=== PATIENT | female | born 1990 | race Two or more races ===

== ENCOUNTER 2017-01-26 20:33 | Emergency (ER) | payer SELFPAY ==
[~2017-01-26] VITALS: Ht 152.4 cm; Wt 76.2 kg
[2017-01-26 20:52] VITALS: BP 132/85
[2017-01-26] MEDS ORDERED: CYCL10TA2 PO (20:56)
[2017-01-26] MEDS ORDERED: NAPR500T PO (20:56)
--- NOTE | 2017-01-26 20:57 | PHYS DOC ---
Adult General Chief Complaint Chief Complaint: LOWER BACK PAIN OR INJURY [facility] HPI Patient is a 26 year old female presents to the emergency department with complaints of mid back pain. She states 2 weeks ago she was carrying laundry when she slipped and bent her back. She describes hyperextension of back. She states she's had mild discomfort since that time and is here seeking evaluation. There is no radiation of pain, no loss of function. She has no loss of bowel or bladder control. No loss function lower extremity. Review of Systems Review of Systems Constitutional: Denies fever or chills [] Eyes: Denies change in visual acuity, redness, or eye pain [] HENT: Denies nasal congestion or sore throat [] Respiratory: Denies cough or shortness of breath [] Cardiovascular: No additional information not addressed in HPI [] GI: Denies abdominal pain, nausea, vomiting, bloody stools or diarrhea [] : Denies dysuria or hematuria [] Musculoskeletal: Back pain Integument: Denies rash or skin lesions [] Neurologic: Denies headache, focal weakness or sensory changes [] Endocrine: Denies polyuria or polydipsia [] Physical Exam Physical Exam Constitutional: Well developed, well nourished, no acute distress, non-toxic appearance. [] Neck: Normal range of motion, no tenderness, supple, no stridor. [] Abdomen: Bowel sounds normal, soft, no tenderness, no masses, no pulsatile masses. [] Back: Mild tenderness in the paraspinous muscles thorax 7 through 11 , without midline tenderness.. Extremities: No tenderness, no cyanosis, no clubbing, ROM intact, no edema, no saddle anesthesia. Muscle strength 5 over 5. [] Neurologic: Alert and oriented X 3, normal motor function, normal sensory function, no focal deficits noted. [] Psychologic: Affect normal, judgement normal, mood normal. [] EKG EKG [] Radiology/Procedures Radiology/Procedures [] Course & Med Decision Making Course & Med Decision Making Pertinent Labs and Imaging studies reviewed. (See chart for details) [] Dragon Disclaimer Dragon Disclaimer This electronic medical record was generated, in whole or in part, using a voice recognition dictation system. Departure Departure Impression: Primary Impression: Thoracic myofascial strain Disposition: 01 HOME, SELF-CARE Condition: STABLE Patient Instructions: Thoracic Strain Scripts Naproxen (NAPROSYN) 500 Mg Tablet 500 MG PO BID, #20 TAB Prov: SHARRI ELIZABETH APRN 01/26/17 Cyclobenzaprine Hcl (CYCLOBENZAPRINE HCL) 10 Mg Tablet 10 MG PO TID, #30 TAB Prov: SHARRI ELIZABETH APRN 01/26/17 Problem Qualifiers Primary Impression: Thoracic myofascial strain Encounter type: initial encounter Qualified Codes: S29.019A - Strain of muscle and tendon of unspecified wall of thorax, initial encounter SHARRI ELIZABETH APRN Jan 26, 2017 20:57
== END 2017-01-26 21:10 | disposition home or self-care (01) ==
LOC: ER 20:33
DX: S29.012A Strain of muscle and tendon of back wall of thorax, initial encounter (principal); W01.0XXA Fall on same level from slipping, tripping and stumbling without subsequent striking against object, initial encounter; Y93.89 Activity, other specified; Y99.8 Other external cause status; Y92.89 Other specified places as the place of occurrence of the external cause
CPT/HCPCS: 99283

== ENCOUNTER 2017-02-04 17:33 | Emergency (ER) | payer SELFPAY ==
[~2017-02-04] VITALS: Ht 152.4 cm; Wt 76.2 kg
[~2017-02-04 17:33] MED LIST: CYCL10TA2 PO; NAPR500T PO
[2017-02-04 19:03] LABS: BASO % 0 % (0-3); EOS % 2 % (0-3); HEMATOCRIT 39.5 % (36.0-47.0); LYMPH # 1.8 x10^3/uL (1.0-4.8); LYMPH % 24 % (24-48); MEAN CORPUSCULAR HEMOGLOBIN 27 pg (25-35); MEAN CORPUSCULAR HGB CONC 33 g/dL (31-37); MEAN CORPUSCULAR VOLUME 81 fL (79-100); MONO % 10 % (0-9); NEUT % 64 % (31-73); PLATELET COUNT 183 x10^3/uL (140-400); RED BLOOD COUNT 4.88 x10^6/uL (3.50-5.40); RED CELL DISTRIBUTION WIDTH 13.3 % (11.5-14.5); WHITE BLOOD COUNT 7.6 x10^3/uL (4.0-11.0)
[2017-02-04 19:11] LABS: BILIRUBIN,URINE NEGATIVE (NEG); GLUCOSE,URINE NEGATIVE (NEG); NITRITE,URINE NEGATIVE (NEG); PROTEIN,URINE NEGATIVE (NEG-TRACE); UROBILINOGEN,URINE 0.2 mg/dL (0.2 mg/dL)
[2017-02-04 19:16] LABS: BARBITURATES NEG (NEG); BENZODIAZEPINES NEG (NEG); CANNABINOIDS NEG (NEG); COCAINE NEG (NEG); METHADONE NEG (NEG); OPIATES NEG (NEG); PHENCYCLIDINE NEG (NEG)
[2017-02-04 19:18] LABS: PROTHROMBIN TIME PATIENT 12.7 SEC (11.7-14.0)
[2017-02-04 19:30] LABS: CALCIUM 8.8 mg/dL (8.5-10.1); CREATININE 0.7 mg/dL (0.6-1.0)
[2017-02-04 19:35] LABS: MAGNESIUM 2.1 mg/dL (1.8-2.4)
[2017-02-04 19:36] LABS: BACTERIA,URINE MANY /HPF (0-FEW); RBC,URINE OCC /HPF (0-2)
[2017-02-04 19:37] LABS: SQUAMOUS EPITHELIAL CELL,UR MOD /LPF
[2017-02-04 19:44] LABS: CREATINE KINASE 58 U/L (26-192)
[2017-02-04 20:01] LABS: CKMB MASS < 0.5 ng/mL (0.0-3.6)
[2017-02-04 20:08] VITALS: BP 109/74
--- NOTE | 2017-02-04 20:37 | PHYS DOC ---
Past Medical History Past Medical History: Anxiety, Depression, Other Additional Past Medical Histor: RA Past Surgical History: Tubal ligation Alcohol Use: None Drug Use: None Adult General Chief Complaint Chief Complaint: OTHER COMPLAINTS HPI HPI Patient is a 26 year old female with history of anxiety and depression who presents today complaining of chest pain mid substernal and non radiating, palpitations and tachycardia for 1-1/2 weeks. Patient states she was diagnosed with hyperthyroidism on Tuesday which the PCP attributed as the cause of her tachycardia and palpitations. She states her PCP started her on medication for hyperthyroidism on Tuesday. She states she has continued to have palpitations. Patient denies any chest pain right now. Review of Systems Review of Systems Constitutional: Denies fever or chills [] Eyes: Denies change in visual acuity, redness, or eye pain [] HENT: Denies nasal congestion or sore throat [] Respiratory: Denies cough or shortness of breath [] Cardiovascular: Palpitations, tachycardia, chest pain. GI: Denies abdominal pain, nausea, vomiting, bloody stools or diarrhea [] : Denies dysuria or hematuria [] Musculoskeletal: Denies back pain or joint pain [] Integument: Denies rash or skin lesions [] Neurologic: Denies headache, focal weakness or sensory changes [] Endocrine: Denies polyuria or polydipsia [] Allergies Allergies Allergies Coded Allergies Type Severity Reaction Last Updated Verified tramadol Allergy Intermediate 01/26/17 Yes Physical Exam Physical Exam Constitutional: Well developed, well nourished, no acute distress, non-toxic appearance. [] HENT: Normocephalic, atraumatic, bilateral external ears normal, oropharynx moist, no oral exudates, nose normal. [] Eyes: PERRLA, EOMI, conjunctiva normal, no discharge. [] Neck: Normal range of motion, no tenderness, supple, no stridor. [] Cardiovascular:Heart rate regular rhythm, no murmur [] Lungs & Thorax: Bilateral breath sounds clear to auscultation [] Abdomen: Bowel sounds normal, soft, no tenderness, no masses, no pulsatile masses. [] Skin: Warm, dry, no erythema, no rash. [] Back: No tenderness, no CVA tenderness. [] Extremities: No tenderness, no cyanosis, no clubbing, ROM intact, no edema. [] Neurologic: Alert and oriented X 3, normal motor function, normal sensory function, no focal deficits noted. [] Psychologic: Affect normal, judgement normal, mood normal. [] Current Patient Data Vital Signs Vital Signs Date Time Temp Pulse Resp B/P (MAP) Pulse Ox O2 Delivery O2 Flow Rate FiO2 02/04/17 20:08 102 22 109/74 (86) 98 Room Air 02/04/17 18:00 98.7 98.7 Lab Values Laboratory Tests Test 02/04/17 18:30 02/04/17 18:50 White Blood Count 7.6 x10^3/uL (4.0-11.0) Red Blood Count 4.88 x10^6/uL (3.50-5.40) Hemoglobin 13.0 g/dL (12.0-15.5) Hematocrit 39.5 % (36.0-47.0) Mean Corpuscular Volume 81 fL (79-100) Mean Corpuscular Hemoglobin 27 pg (25-35) Mean Corpuscular Hemoglobin Concent 33 g/dL (31-37) Red Cell Distribution Width 13.3 % (11.5-14.5) Platelet Count 183 x10^3/uL (140-400) Neutrophils (%) (Auto) 64 % (31-73) Lymphocytes (%) (Auto) 24 % (24-48) Monocytes (%) (Auto) 10 % (0-9) H Eosinophils (%) (Auto) 2 % (0-3) Basophils (%) (Auto) 0 % (0-3) Neutrophils # (Auto) 4.9 x10^3uL (1.8-7.7) Lymphocytes # (Auto) 1.8 x10^3/uL (1.0-4.8) Monocytes # (Auto) 0.7 x10^3/uL (0.0-1.1) Eosinophils # (Auto) 0.2 x10^3/uL (0.0-0.7) Basophils # (Auto) 0.0 x10^3/uL (0.0-0.2) Prothrombin Time 12.7 SEC (11.7-14.0) Prothrombin Time INR 1.0 (0.8-1.1) PTT 26 SEC (24-38) D-Dimer (Zunilda) 0.31 ug/mlFEU (0.00-0.50) Sodium Level 143 mmol/L (136-145) Potassium Level 4.0 mmol/L (3.5-5.1) Chloride Level 106 mmol/L (98-107) Carbon Dioxide Level 31 mmol/L (21-32) Anion Gap 6 (6-14) Blood Urea Nitrogen 16 mg/dL (7-20) Creatinine 0.7 mg/dL (0.6-1.0) Estimated GFR (Cockcroft-Gault) 102.0 Glucose Level 86 mg/dL (70-99) Calcium Level 8.8 mg/dL (8.5-10.1) Magnesium Level 2.1 mg/dL (1.8-2.4) Creatine Kinase 58 U/L (26-192) Creatine Kinase MB (Mass) < 0.5 ng/mL (0.0-3.6) Creatine Kinase MB Relative Index 0.9 % (0-4) Troponin I Quantitative < 0.017 ng/mL (0.000-0.055) QV-Ihy-F-Type Natriuretic Peptide 15 pg/mL (0-124) Thyroid Stimulating Hormone (TSH) < 0.007 uIU/mL (0.358-3.74) L Urine Collection Type Unknown Urine Color Yellow Urine Clarity Clear Urine pH 6.0 Urine Specific [place] 1.020 Urine Protein Negative mg/dL (NEG-TRACE) Urine Glucose (UA) Negative mg/dL (NEG) Urine Ketones (Stick) Negative mg/dL (NEG) Urine Blood Negative (NEG) Urine Nitrite Negative (NEG) Urine Bilirubin Negative (NEG) Urine Urobilinogen Dipstick 0.2 mg/dL (0.2 mg/dL) Urine Leukocyte Esterase Negative (NEG) Urine RBC Occ /HPF (0-2) Urine WBC 1-4 /HPF (0-4) Urine Squamous Epithelial Cells Mod /LPF Urine Bacteria Many /HPF (0-FEW) Urine Mucus Mod /LPF Urine Opiates Screen Neg (NEG) Urine Methadone Screen Neg (NEG) Urine Barbiturates Neg (NEG) Urine Phencyclidine Screen Neg (NEG) Urine Amphetamine/Methamphetamine Neg (NEG) Urine Benzodiazepines Screen Neg (NEG) Urine Cocaine Screen Neg (NEG) Urine Cannabinoids Screen Neg (NEG) Urine Ethyl Alcohol Neg (NEG) Laboratory Tests 02/04/17 18:30 Laboratory Tests 02/04/17 18:30 EKG EKG []19:06 EKG interpreted by Sinus tachycardia, normal axis, QRS interval 82, heart rate 106, no STEMI. Radiology/Procedures Radiology/Procedures [] Course & Med Decision Making Course & Med Decision Making Pertinent Labs and Imaging studies reviewed. (See chart for details) This is a 26-year-old female patient with a new diagnosis of hyperthyroidism on Tuesday this week and was started on medication. She presents today complaining of tachycardia, palpitations and chest pain that have been going on intermittently for 1-1/2 weeks. She has no chest pain in the Ed. 19:06 EKG interpreted by Sinus tachycardia, normal axis, QRS interval 82, heart rate 106, no STEMI. CBC is BMP troponin CK-MB and normal. Urine with no infection. Heart rate was 113 on arrival to the ED, it came down to 102. Blood pressure 124 /65, O2 sats 100% on room air, temperature 98.7, respiration 20 room air. Patient is in no distress. TSH 0.007. Patient states it was 0.009 on Tuesday. This is a well-known condition to patient's PCP and she was started on medication. This appears to be the source of her tachycardia and palpitations. I recommended she continues following up with the PCP. I did provide patient a dining room host/hostess for follow-up as well. Dragon Disclaimer Dragon Disclaimer This electronic medical record was generated, in whole or in part, using a voice recognition dictation system. Departure Departure Impression: Primary Impression: Palpitations Additional Impressions: Tachycardia Hyperthyroidism Disposition: HOME, SELF-CARE Condition: STABLE Referrals: SIS DRUMMOND (PCP) Follow-up with your doctor on Tuesday FABBY PATHAK MD follow up next week Patient Instructions: Palpitations, [id number] Additional Instructions: You were seen for palpitations, chest pain, and tachycardia from low levels of thyroid. Please continue taking your thyroid medicines. Follow-up with the doctor on Tuesday. Follow-up with the dining room host/hostess provided on Tuesday. Come back to the ED if symptoms worsen. Problem Qualifiers UYEN PICKARD APRN Feb 04, 2017 20:37
--- NOTE | 2017-02-05 07:34 | EKG ---
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
== END 2017-02-04 20:43 | disposition home or self-care (01) ==
LOC: ER 17:33
DX: R00.2 Palpitations (principal); R00.0 Tachycardia, unspecified; E05.90 Thyrotoxicosis, unspecified without thyrotoxic crisis or storm; R07.2 Precordial pain; F41.9 Anxiety disorder, unspecified; F32.9 Major depressive disorder, single episode, unspecified; M06.9 Rheumatoid arthritis, unspecified; Z88.5 Allergy status to narcotic agent; Z98.51 Tubal ligation status
CPT/HCPCS: 36415; 80048; 80305; 80320; 81001; 81025; 82550; 82553; 83735; 83880; 84443; 84484; 85027; 85379; 85610; 85730; 93005; G0481; 99285-25

== ENCOUNTER 2017-04-12 15:39 | Emergency (ER) | payer SELFPAY ==
[~2017-04-12] VITALS: Ht 152.4 cm; Wt 76.2 kg
[2017-04-12 16:29] LABS: BILIRUBIN,URINE NEGATIVE (NEG); GLUCOSE,URINE NEGATIVE (NEG); NITRITE,URINE NEGATIVE (NEG); PROTEIN,URINE 30 mg/dL (NEG-TRACE); UROBILINOGEN,URINE 0.2 mg/dL (0.2 mg/dL)
[2017-04-12 16:42] LABS: BASO % 0 % (0-3); EOS % 1 % (0-3); HEMATOCRIT 41.4 % (36.0-47.0); HEMOGLOBIN 13.8 g/dL (12.0-15.5); LYMPH # 1.9 x10^3/uL (1.0-4.8); LYMPH % 19 % (24-48); MEAN CORPUSCULAR HEMOGLOBIN 26 pg (25-35); MEAN CORPUSCULAR HGB CONC 33 g/dL (31-37); MEAN CORPUSCULAR VOLUME 79 fL (79-100); MONO % 5 % (0-9); NEUT % 74 % (31-73); PLATELET COUNT 177 x10^3/uL (140-400); RED BLOOD COUNT 5.23 x10^6/uL (3.50-5.40); RED CELL DISTRIBUTION WIDTH 13.2 % (11.5-14.5); WHITE BLOOD COUNT 9.5 x10^3/uL (4.0-11.0)
[2017-04-12 16:46] LABS: BACTERIA,URINE MOD /HPF (0-FEW); RBC,URINE TNTC /HPF (0-2); SQUAMOUS EPITHELIAL CELL,UR MOD /LPF
--- NOTE | 2017-04-12 16:53 | ED.ADGEN ---
Past Medical History Past Medical History: Anxiety, Depression, Hyperthyroid, Other Additional Past Medical Histor: RA, PTSD Past Surgical History: Tubal ligation Alcohol Use: None Drug Use: None Adult General Chief Complaint Chief Complaint: DIZZY/LIGHT HEADED HPI HPI Patient is a 27 year old woman, with history of hyperthyroidism, for which she takes methimazole, migraine headaches, asthma, PTSD, and fibromyalgia, status post tubal ligation, who presents to the emergency department with a complaint of feeling lightheaded, dizzy, and generally unwell the past several days. No syncope or true presyncope, no chest pain, no breathing difficulties. She states she has had sick contacts among her daughter, with a mild cough, patient states she has "some cough sometimes", but it is nonproductive, denies any fevers, any chills, difficulty breathing, any focal weakness, numbness or tingling, any migraine type symptoms, any vision changes. She states that she has been feeling lightheaded, generally unwell for the past 3 days, states she feels as though "my feet are tight", and they hurt sometimes she walks on them, denies any pain or swelling in other locations, any rashes, any recent travel or surgery. Patient states she's been experiencing urinary frequency especially at nighttime, states that she is currently on her menses and states that initially there were more intermittent, but had become "regular bleeding" today. Denies any discharge or drainage from the vagina, any concerns for STI exposures. No vertiginous symptoms. Review of Systems Review of Systems Constitutional: Denies fever or chills. []Generalized malaise. Lightheaded nebs , feeling of presyncope without syncope. Eyes: Denies change in visual acuity. [] HENT: Denies nasal congestion or sore throat. [] Respiratory: Denies cough or shortness of breath. [] Cardiovascular: Denies chest pain or edema. [] GI: Denies abdominal pain, nausea, vomiting, bloody stools or diarrhea. [] : Denies dysuria. [] Musculoskeletal: Denies back pain or joint pain. [] Integument: Denies rash. [] Neurologic: Denies headache, focal weakness or sensory changes. [] Endocrine: Denies polyuria or polydipsia. [] Lymphatic: Denies swollen glands. [] Psychiatric: Denies depression or anxiety. [] Current Medications Current Medications Current Medications Medications (Trade) Dose Ordered Sig/Dulce Start Time Stop Time Status Last Admin Dose Admin Cephalexin HCl (Keflex) 500 mg 1X ONCE 04/12/17 17:30 04/12/17 17:31 DC Potassium Chloride (KCl Oral Soln) 40 meq 1X ONCE 04/12/17 17:30 04/12/17 17:31 DC Allergies Allergies Allergies Coded Allergies Type Severity Reaction Last Updated Verified tramadol Allergy Intermediate 01/26/17 Yes Physical Exam Physical Exam Constitutional: Well developed, well nourished, no acute distress, non-toxic appearance. [] HENT: Normocephalic, atraumatic, bilateral external ears normal, oropharynx moist, no oral exudates, nose normal. [] Eyes: PERRLA, EOMI, conjunctiva normal, no discharge. [] Neck: Normal range of motion, no tenderness, supple, no stridor. [] Cardiovascular:Heart rate regular rhythm, no murmur, S1, S2, rubs or gallops. [] Lungs & Thorax: Bilateral breath sounds clear to auscultation, no wheezing, rhonchi, rales. No chest or crepitus or tenderness. [] Abdomen: Bowel sounds normal, soft, no tenderness, no rebound, rigidity, no guarding, no masses, no pulsatile masses. [] Skin: Warm, dry, no erythema, no rash. [] Back: No tenderness, no CVA tenderness. [] Extremities: No tenderness, no cyanosis, no clubbing, ROM intact, no edema. Negative Homans sign. [] Neurologic: Alert and oriented X 3, normal motor function, normal sensory function, no focal deficits noted. [] Psychologic: Affect normal, judgement normal, mood normal. [] Current Patient Data Vital Signs Vital Signs Date Time Temp Pulse Resp B/P (MAP) Pulse Ox O2 Delivery O2 Flow Rate FiO2 04/12/17 15:53 97.7 73 18 113/67 (82) 98 Room Air 97.7 Lab Values Laboratory Tests Test 04/12/17 16:00 04/12/17 16:03 04/12/17 16:25 Urine Collection Type Unknown Urine Color Red Urine Clarity Cloudy Urine pH 6.0 Urine Specific [place] 1.020 Urine Protein 30 mg/dL (NEG-TRACE) Urine Glucose (UA) Negative mg/dL (NEG) Urine Ketones (Stick) Negative mg/dL (NEG) Urine Blood Large (NEG) Urine Nitrite Negative (NEG) Urine Bilirubin Negative (NEG) Urine Urobilinogen Dipstick 0.2 mg/dL (0.2 mg/dL) Urine Leukocyte Esterase Moderate (NEG) Urine RBC Tntc /HPF (0-2) Urine WBC 11-20 /HPF (0-4) Urine Squamous Epithelial Cells Mod /LPF Urine Bacteria Mod /HPF (0-FEW) Urine Mucus Mod /LPF POC Urine HCG, Qualitative Hcg negative (Negative) White Blood Count 9.5 x10^3/uL (4.0-11.0) Red Blood Count 5.23 x10^6/uL (3.50-5.40) Hemoglobin 13.8 g/dL (12.0-15.5) Hematocrit 41.4 % (36.0-47.0) Mean Corpuscular Volume 79 fL (79-100) Mean Corpuscular Hemoglobin 26 pg (25-35) Mean Corpuscular Hemoglobin Concent 33 g/dL (31-37) Red Cell Distribution Width 13.2 % (11.5-14.5) Platelet Count 177 x10^3/uL (140-400) Neutrophils (%) (Auto) 74 % (31-73) H Lymphocytes (%) (Auto) 19 % (24-48) L Monocytes (%) (Auto) 5 % (0-9) Eosinophils (%) (Auto) 1 % (0-3) Basophils (%) (Auto) 0 % (0-3) Neutrophils # (Auto) 7.0 x10^3uL (1.8-7.7) Lymphocytes # (Auto) 1.9 x10^3/uL (1.0-4.8) Monocytes # (Auto) 0.5 x10^3/uL (0.0-1.1) Eosinophils # (Auto) 0.1 x10^3/uL (0.0-0.7) Basophils # (Auto) 0.0 x10^3/uL (0.0-0.2) Sodium Level 140 mmol/L (136-145) Potassium Level 3.4 mmol/L (3.5-5.1) L Chloride Level 104 mmol/L (98-107) Carbon Dioxide Level 26 mmol/L (21-32) Anion Gap 10 (6-14) Blood Urea Nitrogen 17 mg/dL (7-20) Creatinine 0.7 mg/dL (0.6-1.0) Estimated GFR (Cockcroft-Gault) 101.1 Glucose Level 92 mg/dL (70-99) Calcium Level 9.0 mg/dL (8.5-10.1) Thyroid Stimulating Hormone (TSH) < 0.007 uIU/mL (0.358-3.74) L Laboratory Tests 04/12/17 16:25 Laboratory Tests 04/12/17 16:25 EKG EKG EC: Sinus rhythm, heart rate 57 bpm, upright axis, QTC of 390, [place] 1:30, QRS of 80, no ST elevations or depressions, no evidence of acute ST abnormalities. As interpreted by me.[] Radiology/Procedures Radiology/Procedures Not indicated.[] Course & Med Decision Making Course & Med Decision Making Pertinent Labs and Imaging studies reviewed. (See chart for details) Patient well-appearing, vital signs within normal limits. Discussion at bedside will obtain laboratory studies including urinalysis as patient is complaining of increased urinary frequency and urgency over the past several days along with feeling generally run down. She is not exhibiting any vertiginous symptoms , and is a normal neurologic examination. No indication for advanced imaging. ECG was unremarkable, heart rate in the 50s and 60s, sinus rhythm, as stated all vital signs within normal limits, no evidence of orthostasis on examination. Patient's laboratory studies revealed a slight hypokalemia with a K of 3.4, otherwise unremarkable, patient was noted to have 20 WBCs, and bacteria in the urine, conjunction with her symptoms, will treat for UTI. I did discuss this with patient, patient was offered potassiums limitation in the ED, discussed increasing dietary intake of potassium, also discussed the importance of following up with her endocrinology appointment on Tuesday for additional evaluation and recommendations. Patient voiced understanding and agreement. Received first dose of Keflex in the ED, KCl in the ED, she tolerated both without issue. We discussed concerning symptoms that would prompt return to the emergency department. Patient voiced understanding and agreement, states that she is feeling better at this time, is rated go home. 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 Patient discharged home in stable condition with prescription for Keflex, precautions, and plan as above. Dragon Disclaimer Dragon Disclaimer This electronic medical record was generated, in whole or in part, using a voice recognition dictation system. Departure Impression: Primary Impression: Urinary tract infection Additional Impression: Hypokalemia Disposition: HOME, SELF-CARE Condition: IMPROVED Scripts Cephalexin (KEFLEX) 500 Mg Capsule 1 CAP PO BID, #6 CAP Prov: DEQUAN HARRIS DO 04/12/17 Problem Qualifiers DEQUAN HARRIS DO Apr 12, 2017 16:53
[2017-04-12 17:04] LABS: CREATININE 0.7 mg/dL (0.6-1.0); GFR 101.1; POTASSIUM 3.4 mmol/L (3.5-5.1)
[2017-04-12] MEDS ORDERED: CEPHALEXIN 250 MG CAPSULE. PO ONE (17:30)
[2017-04-12] MEDS ORDERED: POTASSIUM CHLORIDE 20 MEQ/15 ML ORAL LIQUID. PO ONE (17:30)
[2017-04-12] MEDS ORDERED: CEPH-264 PO (17:43)
[2017-04-12 18:10] VITALS: BP 109/61
--- NOTE | 2017-04-13 06:34 | EKG ---
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
== END 2017-04-12 18:20 | disposition home or self-care (01) ==
LOC: ER 15:39
DX: N39.0 Urinary tract infection, site not specified (principal); M06.9 Rheumatoid arthritis, unspecified; E05.90 Thyrotoxicosis, unspecified without thyrotoxic crisis or storm; F43.10 Post-traumatic stress disorder, unspecified; G43.909 Migraine, unspecified, not intractable, without status migrainosus; J45.909 Unspecified asthma, uncomplicated; M79.7 Fibromyalgia; Z88.8 Allergy status to other drugs, medicaments and biological substances
CPT/HCPCS: 36415; 80048; 81001; 81025; 84443; 85025; 93005; 99285-25

== ENCOUNTER 2017-09-18 17:08 | Emergency (ER) | payer BC | END 2017-09-18 19:02 | disposition home or self-care (01) | LOC: ER 17:08 | DX: S62.657A Nondisplaced fracture of middle phalanx of left little finger, initial encounter for closed fracture (principal); S60.042A Contusion of left ring finger without damage to nail, initial encounter; F41.9 Anxiety disorder, unspecified; F32.9 Major depressive disorder, single episode, unspecified; E05.90 Thyrotoxicosis, unspecified without thyrotoxic crisis or storm; F43.10 Post-traumatic stress disorder, unspecified; M06.9 Rheumatoid arthritis, unspecified; I10 Essential (primary) hypertension; Z98.51 Tubal ligation status; Z88.5 Allergy status to narcotic agent; W23.0XXA Caught, crushed, jammed, or pinched between moving objects, initial encounter; Y93.89 Activity, other specified; Y92.89 Other specified places as the place of occurrence of the external cause; Y99.8 Other external cause status | CPT/HCPCS: 29130; 73130; 99284 ==

== ENCOUNTER 2018-04-25 12:40 | Emergency (ER) | payer BC ==
[~2018-04-25] VITALS: Ht 165.1 cm; Wt 81.6 kg
[~2018-04-25 12:40] MED LIST changes: +ACET-704 PO; +CEPH-264 PO; +NAPR-683 PO; -NAPR500T PO
[2018-04-25 13:10] VITALS: BP 112/74
--- NOTE | 2018-04-25 13:32 | PHYS DOC ---
Past Medical History Past Medical History: Anxiety, Depression, Hyperthyroid, Other Additional Past Medical Histor: RA, PTSD Past Surgical History: Tubal ligation Alcohol Use: Occasionally Drug Use: None Adult General Chief Complaint Chief Complaint: SORE THROAT HPI HPI Patient is a 28 year old complains of sore throat x 3 days. Describes the pain as sharp. Rates the pain as 6/10. Associated symptoms include rhinorrhea, subjective fever and ear pain. Denies chest pain, cough, shortness of breath, headache, abdominal pain, rash or nausea/vomiting. Review of Systems Review of Systems Constitutional: Complains of subjective fever, Denies chills [] Eyes: Denies change in visual acuity, redness, or eye pain [] HENT: Complains of rhinorrhea, ear pain, and sore throat. Respiratory: Denies cough or shortness of breath [] Cardiovascular: No additional information not addressed in HPI [] GI: Denies abdominal pain, nausea, vomiting, bloody stools or diarrhea [] : Denies dysuria or hematuria [] Musculoskeletal: Denies back pain or joint pain [] Integument: Denies rash or skin lesions [] Neurologic: Denies headache, focal weakness or sensory changes [] All other systems were reviewed and found to be within normal limits, except as documented in this note. Allergies Allergies Allergies Coded Allergies Type Severity Reaction Last Updated Verified tramadol Allergy Intermediate 01/26/17 Yes Physical Exam Physical Exam Constitutional: Well developed, well nourished, no acute distress, non-toxic appearance. [] HENT: Normocephalic, atraumatic, bilateral external ears normal, oropharynx moist, no oral exudates, nose normal. Mild pharyngeal erythema. No exudate. Uvula midline. Eyes: PERRLA, EOMI, conjunctiva normal, no discharge. [] Neck: Normal range of motion, no tenderness, supple, no stridor. [] Cardiovascular:Heart rate regular rhythm, no murmur [] Lungs & Thorax: Bilateral breath sounds clear to auscultation [] Abdomen: Bowel sounds normal, soft, no tenderness, no masses, no pulsatile masses. [] Skin: Warm, dry, no erythema, no rash. [] Back: No tenderness, no CVA tenderness. [] Extremities: No tenderness, no cyanosis, no clubbing, ROM intact, no edema. [] Neurologic: Alert and oriented X 3, normal motor function, normal sensory function, no focal deficits noted. [] Psychologic: Affect normal, judgement normal, mood normal. [] Current Patient Data Vital Signs Vital Signs Date Time Temp Pulse Resp B/P (MAP) Pulse Ox O2 Delivery O2 Flow Rate FiO2 04/25/18 13:10 98.3 88 16 112/74 (87) 99 Room Air 98.3 Lab Values Laboratory Tests Test 04/25/18 13:17 Group A Streptococcus Rapid Negative (NEGATIVE) EKG EKG [] Radiology/Procedures Radiology/Procedures [] Course & Med Decision Making Course & Med Decision Making Pertinent Labs and Imaging studies reviewed. (See chart for details) []Strep test negative. We'll treat with short course of prednisone outpatient. Discussed symptomatic treatment and [id number] medications. Discussed follow-up and reasons to return to the ED. Patient understands and agrees with plan. Dragon Disclaimer Dragon Disclaimer This electronic medical record was generated, in whole or in part, using a voice recognition dictation system. Departure Departure Impression: Primary Impression: Pharyngitis Disposition: 01 HOME, SELF-CARE Condition: IMPROVED Referrals: SIS DRUMMOND MD (PCP) Patient Instructions: Viral and Bacterial Pharyngitis Scripts Prednisone (PREDNISONE) 20 Mg Tablet 2 TAB PO DAILY for 5 Days, #10 TAB Prov: CONNIE LOERA 04/25/18 CONNIE LOERA Apr 25, 2018 13:32
[2018-04-25] MEDS ORDERED: PRED20TA PO (13:51)
== END 2018-04-25 14:17 | disposition home or self-care (01) ==
LOC: ER 12:40
DX: J02.9 Acute pharyngitis, unspecified (principal); H92.09 Otalgia, unspecified ear; F41.9 Anxiety disorder, unspecified; F32.9 Major depressive disorder, single episode, unspecified; E03.9 Hypothyroidism, unspecified; Z98.51 Tubal ligation status; Z88.5 Allergy status to narcotic agent
CPT/HCPCS: 87070; 87880; 99283

== ENCOUNTER 2018-05-16 17:09 | Emergency (ER) | payer BC ==
[~2018-05-16] VITALS: Ht 152.4 cm; Wt 86.2 kg
[~2018-05-16 17:09] MED LIST changes: +PRED20TA PO
[2018-05-16] MEDS ORDERED: CYCL5TAB PO (20:07)
[2018-05-16] MEDS ORDERED: CYCLOBENZAPRINE 10 MG TABLET. PO ONE (20:15)
[2018-05-16 20:32] LABS: CREATININE ISTAT 1.3 mg/dL (0.5-1.4); HEMOGLOBIN ISTAT 13.9 g/dL (12-15); ION CA ISTAT 1.14 mmol/L (1.13-1.32); POTASSIUM ISTAT 3.3 mmol/L (3.5-5.0)
[2018-05-16 20:33] LABS: BILIRUBIN,URINE NEGATIVE (NEG); CLARITY,URINE CLEAR; COLOR,URINE YELLOW; NITRITE,URINE NEGATIVE (NEG); PH,URINE 6.5; PROTEIN,URINE 30 mg/dL (NEG-TRACE)
[2018-05-16 20:59] LABS: BACTERIA,URINE FEW /HPF (0-FEW); SQUAMOUS EPITHELIAL CELL,UR MANY /LPF
[2018-05-16 21:13] VITALS: BP 102/77
--- NOTE | 2018-05-16 21:33 | PHYS DOC ---
Past Medical History Past Medical History: Anxiety, Depression, Hypothyroid, Migraines, Other Additional Past Medical Histor: RA, PTSD, GRAVES Past Surgical History: Tubal ligation, Other Additional Past Surgical Histo: THYROID Alcohol Use: Occasionally Drug Use: None Adult General Chief Complaint Chief Complaint: FLANK PAIN HPI HPI Patient is a 28 year old female presenting with back pain. She has a history of chronic back pain has been worse in the left side for the last 3 days in the left paraspinous area no dysuria she does have intermittent foot and arm swelling she was told she had mild renal insufficiency and she was told to watch for that so she has not been taking any Motrin. It's worse with position and movement. No bowel or bladder incontinence no leg pain or numbness. Review of Systems Review of Systems Constitutional: Denies fever or chills [] Eyes: Denies change in visual acuity, redness, or eye pain [] HENT: Denies nasal congestion or sore throat [] Respiratory: Denies cough or shortness of breath [] Neurologic: Denies headache, focal weakness or sensory changes [] All other systems were reviewed and found to be within normal limits, except as documented in this note. Current Medications Current Medications Current Medications Medications (Trade) Dose Ordered Sig/Dulce Start Time Stop Time Status Last Admin Dose Admin Cyclobenzaprine HCl (Flexeril) 10 mg 1X ONCE 05/16/18 20:15 05/16/18 20:16 DC 05/16/18 20:15 10 MG Allergies Allergies Allergies Coded Allergies Type Severity Reaction Last Updated Verified tramadol Allergy Intermediate 01/26/17 Yes Physical Exam Physical Exam Constitutional: Well developed, well nourished, no acute distress, non-toxic appearance. [] HENT: Normocephalic, atraumatic, bilateral external ears normal, oropharynx moist, no oral exudates, nose normal. [] Eyes: PERRLA, EOMI, conjunctiva normal, no discharge. [] Pulmonary: Normal respiratory effort no increased work of breathing no obvious chest wall trauma Abdomen: , soft, no tenderness, no masses, no pulsatile masses. [] Skin: Warm, dry, no erythema, no rash. [] Back: Paraspinous tenderness with palpable spasm on the left Extremities: No tenderness, no cyanosis, no clubbing, ROM intact, no edema. [] Neurologic: Alert and oriented X 3, normal motor function, normal sensory function, no focal deficits noted. [] Psychologic: Affect normal, judgement normal, mood normal. [] Current Patient Data Vital Signs Vital Signs Date Time Temp Pulse Resp B/P (MAP) Pulse Ox O2 Delivery O2 Flow Rate FiO2 05/16/18 19:45 84 18 108/73 (85) 99 Room Air 05/16/18 19:26 98.6 98.6 Lab Values Laboratory Tests Test 05/16/18 19:24 05/16/18 19:53 05/16/18 20:14 Urine Collection Type Unknown Urine Color Yellow Urine Clarity Clear Urine pH 6.5 Urine Specific [place] 1.025 Urine Protein 30 mg/dL (NEG-TRACE) Urine Glucose (UA) Negative mg/dL (NEG) Urine Ketones (Stick) Negative mg/dL (NEG) Urine Blood Large (NEG) Urine Nitrite Negative (NEG) Urine Bilirubin Negative (NEG) Urine Urobilinogen Dipstick 1.0 mg/dL (0.2 mg/dL) Urine Leukocyte Esterase Small (NEG) Urine RBC 3-5 /HPF (0-2) Urine WBC 5-10 /HPF (0-4) Urine Squamous Epithelial Cells Many /LPF Urine Bacteria Few /HPF (0-FEW) Urine Mucus Mod /LPF POC Urine HCG, Qualitative Hcg negative (Negative) POC Hemoglobin 13.9 g/dL (12-15) POC Hematocrit 41 % (36-40) H POC Sodium 140 mmol/L (135-145) POC Potassium 3.3 mmol/L (3.5-5.0) L POC Chloride 103 mmol/L (98-110) POC Total CO2 25 mmol/L (23-32) Anion Gap 17 mmol/L (6-14) H POC Blood Urea Nitrogen 13 mg/dL (8-26) POC Creatinine 1.3 mg/dL (0.5-1.4) Glucose Level 91 mg/dL (70-99) POC Ionized Calcium (Vaibhav) 1.14 mmol/L (1.13-1.32) Laboratory Tests 05/16/18 20:14 EKG EKG [] Radiology/Procedures Radiology/Procedures [] Course & Med Decision Making Course & Med Decision Making Pertinent Labs and Imaging studies reviewed. (See chart for details) []Urine is essentially negative prostate contaminated a little bit patient was improved with muscle relaxant I think she has muscular back pain. She was understanding instructions prescription for muscle accident was provided caution and the use of this Dragon Disclaimer Dragon Disclaimer This electronic medical record was generated, in whole or in part, using a voice recognition dictation system. Departure Departure Impression: Primary Impression: Back pain Disposition: 01 HOME, SELF-CARE Condition: STABLE Patient Instructions: Back Pain, Adult, [id number] Scripts Cyclobenzaprine Hcl (CYCLOBENZAPRINE HCL) 5 Mg Tablet 10 MG PO PRN TID PRN for PAIN, #15 TAB Prov: TOSHA REZA MD 05/16/18 TOSHA REZA MD May 16, 2018 21:33
== END 2018-05-16 21:25 | disposition home or self-care (01) ==
LOC: ER 17:09
DX: G89.29 Other chronic pain (principal); M54.9 Dorsalgia, unspecified; E03.9 Hypothyroidism, unspecified; Z88.5 Allergy status to narcotic agent
CPT/HCPCS: 80047; 81001; 81025; 85014; 85018; 87086; 99283

== ENCOUNTER 2018-09-02 11:55 | Emergency (ER) | payer BC ==
[~2018-09-02] VITALS: Ht 152.4 cm; Wt 81.6 kg
[~2018-09-02 11:55] MED LIST changes: +CYCL5TAB PO
[2018-09-02] MEDS ORDERED: HYDROcodone/APAP 5/325MG 1 TAB TABLET PO ONE (13:00)
[2018-09-02] MEDS ORDERED: CYCLOBENZAPRINE 10 MG TABLET. PO ONE (13:00)
[2018-09-02 13:18] LABS: BILIRUBIN,URINE SMALL (NEG); CLARITY,URINE CLEAR; COLOR,URINE YELLOW; NITRITE,URINE NEGATIVE (NEG); PROTEIN,URINE 30 mg/dL (NEG-TRACE); UROBILINOGEN,URINE 0.2 mg/dL (0.2 mg/dL)
[2018-09-02 13:22] LABS: BARBITURATES NEG (NEG); BENZODIAZEPINES NEG (NEG); CANNABINOIDS NEG (NEG); COCAINE NEG (NEG); METHADONE NEG (NEG); OPIATES NEG (NEG); PHENCYCLIDINE NEG (NEG)
[2018-09-02 13:23] LABS: AMPHETAMINE/METHAMPHETAMINE NEG (NEG)
--- NOTE | 2018-09-02 13:34 | RAD ---
CT lumbar spine without contrast History: Back pain after fall Technique: Axial helical images of the lumbar spine were obtained without contrast. Coronal and sagittal reconstruction was performed. Exposure: One or more of the following individualized dose reduction techniques were utilized for this examination: 1. Automated exposure control 2. Adjustment of the mA and/or kV according to patient size 3. Use of iterative reconstruction technique Findings: The vertebral bodies are aligned. There is no loss of vertebral body stature. Mild posterior disc bulge identified at L4-L5, L5-S1 vertebral levels. The caliber of the aorta grossly appears unremarkable. Feces and gas noted in the colon. Impression: 1. No acute osseous findings. Electronically signed by: Giovani Contreras MD (09/02/2018 1:31 PM) [facility]
[2018-09-02 14:11] LABS: SQUAMOUS EPITHELIAL CELL,UR MANY /LPF
[2018-09-02 14:12] LABS: BACTERIA,URINE MANY /HPF (0-FEW)
--- NOTE | 2018-09-02 14:22 | RAD ---
Examination: 2 views of the right forearm and 3 views of the right hand HISTORY: History of right midforearm, hand pain, bruising COMPARISON: None available FINDINGS: The alignment of the radius, ulna grossly appears unremarkable. The alignment of the carpometacarpal joints, metacarpophalangeal, interphalangeal joints grossly appears unremarkable. Impression: No acute osseous findings. Electronically signed by: Giovani Contreras MD (09/02/2018 2:19 PM) [facility]
--- NOTE | 2018-09-02 14:22 | RAD ---
Examination: 2 views of the right forearm and 3 views of the right hand HISTORY: History of right midforearm, hand pain, bruising COMPARISON: None available FINDINGS: The alignment of the radius, ulna grossly appears unremarkable. The alignment of the carpometacarpal joints, metacarpophalangeal, interphalangeal joints grossly appears unremarkable. Impression: No acute osseous findings. Electronically signed by: Giovani Contreras MD (09/02/2018 2:19 PM) [facility]
[2018-09-02 14:30] VITALS: BP 110/67
[2018-09-02] MEDS ORDERED: CYCL10TA2 PO (14:38)
--- NOTE | 2018-09-02 14:38 | PHYS DOC ---
Past Medical History Past Medical History: Anxiety, Depression, Hypothyroid, Migraines, Renal Disease, Other Additional Past Medical Histor: RA, PTSD, GRAVES Past Surgical History: Tonsillectomy, Tubal ligation, Other Additional Past Surgical Histo: THYROID Alcohol Use: Occasionally Drug Use: None Adult General Chief Complaint Chief Complaint: MECHANICAL FALL HPI HPI Patient is a 28 year old female with history of kidney disease, depression, anxiety, migraine headaches, who presents to the ED today complaining of 8 out of 10 throbbing intermittent left low back pain nonradiating in nature and right forearm pain status post falling yesterday. Patient states she believes she fell 10 steps down. She states she had a young child that was about to fall down the steps, she states in effort to prevent the child from falling she herself went down 10 steps. She denies any loss of consciousness, denies any neck pain, denies hitting her head on the ground. Denies any hematuria or mid back pain. Review of Systems Review of Systems Constitutional: Denies fever or chills [] Eyes: Denies change in visual acuity, redness, or eye pain [] HENT: Denies nasal congestion or sore throat [] Respiratory: Denies cough or shortness of breath [] Cardiovascular: No additional information not addressed in HPI [] GI: Denies abdominal pain, nausea, vomiting, bloody stools or diarrhea [] : Denies dysuria or hematuria [] Musculoskeletal: Reports left low back pain and right forearm pain Integument: Denies rash or skin lesions [] Neurologic: Denies headache, focal weakness or sensory changes [] All other systems were reviewed and found to be within normal limits, except as documented in this note. Current Medications Current Medications Current Medications Medications (Trade) Dose Ordered Sig/Dulce Start Time Stop Time Status Last Admin Dose Admin Acetaminophen/ Hydrocodone Bitart (Lortab 5/325) 2 tab 1X ONCE 09/02/18 13:00 09/02/18 13:01 DC 09/02/18 12:57 2 TAB Cyclobenzaprine HCl (Flexeril) 10 mg 1X ONCE 09/02/18 13:00 09/02/18 13:01 DC 09/02/18 12:57 10 MG Allergies Allergies Allergies Coded Allergies Type Severity Reaction Last Updated Verified tramadol Allergy Intermediate 01/26/17 Yes Physical Exam Physical Exam Constitutional: Well developed, well nourished, no acute distress, non-toxic appearance. [] HENT: Normocephalic, atraumatic, bilateral external ears normal, oropharynx moist, no oral exudates, nose normal. [] Eyes: PERRLA, EOMI, conjunctiva normal, no discharge. [] Neck: Normal range of motion, no tenderness, supple, no stridor. [] Cardiovascular:Heart rate regular rhythm, no murmur [] Lungs & Thorax: Bilateral breath sounds clear to auscultation [] Abdomen: Bowel sounds normal, soft, no tenderness, no masses, no pulsatile masses. [] Skin: Warm, dry, no erythema, no rash. [] Back: Diffuse paraspinal muscle tenderness to the left lumbar spine as well as slight midline lumbar spine tenderness, no CVA tenderness. [] Extremities: Right upper extremity with no obvious deformity. No scaphoid tenderness, diffuse tenderness on the right dorsal wrist. Full range of motion to the right forearm and fingers. Adequate radial, medial, ulnar sensation to the right hand. +2 right radial pulse. Cap refill less than 2 seconds the right fingers. Neurologic: Alert and oriented X 3, normal motor function, normal sensory function, no focal deficits noted. [] Psychologic: Affect normal, judgement normal, mood normal. [] Current Patient Data Vital Signs Vital Signs Date Time Temp Pulse Resp B/P (MAP) Pulse Ox O2 Delivery O2 Flow Rate FiO2 09/02/18 12:14 98.1 82 16 105/74 (84) 98 Room Air 98.1 Lab Values Laboratory Tests Test 09/02/18 12:28 09/02/18 12:35 Urine Collection Type Unknown Urine Color Yellow Urine Clarity Clear Urine pH 7.0 Urine Specific [place] >=1.030 Urine Protein 30 mg/dL (NEG-TRACE) Urine Glucose (UA) Negative mg/dL (NEG) Urine Ketones (Stick) Trace mg/dL (NEG) Urine Blood Negative (NEG) Urine Nitrite Negative (NEG) Urine Bilirubin Small (NEG) Urine Urobilinogen Dipstick 0.2 mg/dL (0.2 mg/dL) Urine Leukocyte Esterase Small (NEG) Urine RBC 1-2 /HPF (0-2) Urine WBC 5-10 /HPF (0-4) Urine Squamous Epithelial Cells Many /LPF Urine Bacteria Many /HPF (0-FEW) Urine Mucus Marked /LPF Urine Opiates Screen Neg (NEG) Urine Methadone Screen Neg (NEG) Urine Barbiturates Neg (NEG) Urine Phencyclidine Screen Neg (NEG) Urine Amphetamine/Methamphetamine Neg (NEG) Urine Benzodiazepines Screen Neg (NEG) Urine Cocaine Screen Neg (NEG) Urine Cannabinoids Screen Neg (NEG) Urine Ethyl Alcohol Neg (NEG) POC Urine HCG, Qualitative Hcg negative (Negative) EKG EKG [] Radiology/Procedures Radiology/Procedures [] Course & Med Decision Making Course & Med Decision Making Pertinent Labs and Imaging studies reviewed. (See chart for details) This is a 28-year-old female patient presenting to the ED today to be evaluated status post falling yesterday. Patient fell down 10 steps. Urine is negative for blood. CT of the lumbar spine is negative for any acute findings, right forearm x-rays and right hand x-rays are negative for any acute findings. Patient is in no distress. Discharged with cyclobenzaprine. Follow-up with PCP in 1-2 weeks. Also follow-up with orthopedic doctor. Noted for constipation on CT. Encouraged to take [id number] bowel prep medications. Dragon Disclaimer Dragon Disclaimer This electronic medical record was generated, in whole or in part, using a voice recognition dictation system. Departure Departure Impression: Primary Impression: Fall down steps Additional Impressions: Lumbar contusion Sprain of right hand Disposition: 01 HOME, SELF-CARE Condition: STABLE Referrals: SIS DRUMMOND MD (PCP) Follow-up in one week LUIS ENRIQUE MAYEN II, MD Follow-up in 1-2 weeks Patient Instructions: Contusion, [id number], Fall Prevention and Home Safety Additional Instructions: You were evaluated in the emergency room after falling, your CT of the lumbar spine and x-rays of the right forearm and right hand are negative for any acute findings. You were noted to be constipated. Increase your dietary fiber as well as water intake. Take some Tylenol or Motrin as needed for pain. Take over-the- counter bowel prep medications like magnesium citrate and MiraLAX. Follow-up with your own doctor the provided orthopedic doctor in 1-2 weeks. Ice and elevate the affected areas. Scripts Cyclobenzaprine Hcl (CYCLOBENZAPRINE HCL) 10 Mg Tablet 1 TAB PO TID, #30 TAB Prov: UYEN PICKARD [employer] 09/02/18 Problem Qualifiers Primary Impression: Fall down steps Encounter type: initial encounter Qualified Codes: W10.8XXA - Fall (on) ( from) other stairs and steps, initial encounter Additional Impressions: Lumbar contusion Encounter type: initial encounter Qualified Codes: S30.0XXA - Contusion of lower back and pelvis, initial encounter Sprain of right hand Encounter type: initial encounter Qualified Codes: S63.91XA - Sprain of unspecified part of right wrist and hand, initial encounter UYEN PICKARD APRN Sep 02, 2018 14:38
== END 2018-09-02 14:51 | disposition home or self-care (01) ==
LOC: ER 11:55
DX: S63.8X1A Sprain of other part of right wrist and hand, initial encounter (principal); F41.9 Anxiety disorder, unspecified; S30.0XXA Contusion of lower back and pelvis, initial encounter; F32.9 Major depressive disorder, single episode, unspecified; E03.9 Hypothyroidism, unspecified; G43.909 Migraine, unspecified, not intractable, without status migrainosus; Z90.89 Acquired absence of other organs; Z98.51 Tubal ligation status; Z88.5 Allergy status to narcotic agent; W10.8XXA Fall (on) (from) other stairs and steps, initial encounter; Y93.89 Activity, other specified; Y92.89 Other specified places as the place of occurrence of the external cause; Y99.8 Other external cause status
CPT/HCPCS: 72131; 73090; 73130; 80307; 81001; 81025; 99283; 99284

== ENCOUNTER 2019-02-27 14:52 | Emergency (ER) | payer BC, OTHER ==
[~2019-02-27] VITALS: Ht 152.4 cm; Wt 90.7 kg
--- NOTE | 2019-02-27 15:54 | PHYS DOC ---
Past Medical History Past Medical History: Anxiety, Depression, Hypothyroid, Migraines, Renal Disease, Other Additional Past Medical Histor: RA, PTSD, GRAVES Past Surgical History: Tonsillectomy, Tubal ligation, Other Additional Past Surgical Histo: THYROID Alcohol Use: Occasionally Drug Use: None Adult General Chief Complaint Chief Complaint: HEADACHE HPI HPI Patient is a pleasant 28-year-old female who presents to the emergency department for evaluation of a left-sided migraine headache. The patient states that the headache began gradually a little over a week ago, and has persisted. She states that the headache is no worse than her typical migraine headaches, wh ich she gets frequently, and she will have 1-2 episodes per year where she has a migraine headache like today's headache that will not resolve, requiring an ER visit. She has not had any nausea or vomiting. She does report some left-sided blurred vision, but no ocular pain, denies any fevers, neck stiffness, numbness, weakness, abdominal pain, or any other concerning symptoms. The overall syndrome is no different than her multiple prior migraine headaches. There are no alleviating or exacerbating factors to her symptoms. Review of Systems Review of Systems Constitutional: Denies fever or chills [] Eyes: Denies redness, or eye pain [] HENT: Denies nasal congestion or sore throat [] Respiratory: Denies cough or shortness of breath [] Cardiovascular: The patient denies any shortness of breath, chest pain, palpitations, or orthopnea [] GI: Denies abdominal pain, nausea, vomiting, bloody stools or diarrhea [] : Denies dysuria or hematuria [] Musculoskeletal: Denies back pain or joint pain [] Integument: Denies rash or skin lesions [] Neurologic: Denies focal weakness or sensory changes [] Endocrine: Denies polyuria or polydipsia [] All other systems were reviewed and found to be within normal limits, except as documented in this note. Current Medications Current Medications Current Medications Medications (Trade) Dose Ordered Sig/Dulce Start Time Stop Time Status Last Admin Dose Admin Diphenhydramine HCl (Benadryl) 25 mg 1X ONCE 02/27/19 16:00 02/27/19 16:01 DC 02/27/19 16:19 25 MG Ketorolac Tromethamine (Toradol 30mg Vial) 30 mg 1X ONCE 02/27/19 16:00 02/27/19 16:01 DC 02/27/19 16:19 30 MG Prochlorperazine Edisylate (Compazine) 10 mg 1X ONCE 02/27/19 16:00 02/27/19 16:01 DC 02/27/19 16:19 10 MG Sodium Chloride 1,000 ml @ 1,000 mls/hr 1X ONCE 02/27/19 16:00 02/27/19 16:59 DC 02/27/19 16:19 1,000 MLS/HR Allergies Allergies Allergies Coded Allergies Type Severity Reaction Last Updated Verified tramadol Allergy Intermediate 01/26/17 Yes Physical Exam Physical Exam PHYSICAL EXAM: CONSTITUTIONAL: Well developed, well nourished HEAD: normocephalic, atraumatic EENT: PERRL, EOMI. Conjunctivae normal color, sclerae non-icteric; moist mucous membranes. NECK: Supple, non-tender; no meningismus. LUNGS: Lungs CTA, breathing even and unlabored. Normal air movement. HEART: Regular rate and rhythm, no murmur CHEST: No deformity; non-tender ABDOMEN: The abdomen is soft, and non-tender, no masses or bruits. EXTREM: Normal ROM; no deformity, no calf tenderness. Normal pulses palpable in all extremities. There is no pedal edema. SKIN: No rash; no diaphoresis NEURO: Alert; normal speech and cognition; CN's grossly intact; strength grossly intact without focal deficit. BACK: No CVA TTP. Current Patient Data Vital Signs Vital Signs Date Time Temp Pulse Resp B/P (MAP) Pulse Ox O2 Delivery O2 Flow Rate FiO2 02/27/19 15:21 98.6 89 16 111/76 (88) 96 Room Air 98.6 Lab Values Laboratory Tests Test 02/27/19 15:42 POC Urine HCG, Qualitative Hcg negative (Negative) EKG EKG [] Radiology/Procedures Radiology/Procedures [] Course & Med Decision Making Course & Med Decision Making Patient's condition remained stable. Her headache has completely resolved, she is feeling better, mental status remained normal. I discussed importance of close PCP follow-up and return precautions in detail. Dragon Disclaimer Dragon Disclaimer This electronic medical record was generated, in whole or in part, using a voice recognition dictation system. Departure Departure Impression: Primary Impression: Migraine headache Disposition: HOME, SELF-CARE Condition: STABLE Referrals: JACKIE COLUNGA JR, MD (PCP) HOSSEIN TELLEZ MD Feb 27, 2019 15:54
[2019-02-27] MEDS ORDERED: IV NORMAL SALINE 1000ML BAG 1,000 ML IV ONE (16:00)
[2019-02-27] MEDS ORDERED: diphenhydrAMINE 50 MG/ML VIAL IVP ONE (16:00)
[2019-02-27] MEDS ORDERED: KETOROLAC 30 MG/ML VIAL. IV ONE (16:00)
[2019-02-27] MEDS ORDERED: PROCHLORPERAZINE 10 MG/2 ML VIAL. IV ONE (16:00)
[2019-02-27 18:09] VITALS: BP 123/73
== END 2019-02-27 18:15 | disposition home or self-care (01) ==
LOC: ER 14:52
DX: G43.909 Migraine, unspecified, not intractable, without status migrainosus (principal); F41.9 Anxiety disorder, unspecified; F32.9 Major depressive disorder, single episode, unspecified; E03.9 Hypothyroidism, unspecified; Z90.89 Acquired absence of other organs; Z98.51 Tubal ligation status; Z88.5 Allergy status to narcotic agent
CPT/HCPCS: 81025; 96374; 96375; 99284; J0780; J1200; J1885; J7030

== ENCOUNTER 2019-03-22 12:06 | Emergency (ER) | payer OTHER ==
[~2019-03-22] VITALS: Ht 152.4 cm; Wt 90.7 kg
[2019-03-22 13:26] VITALS: BP 116/72
--- NOTE | 2019-03-22 13:56 | RAD ---
EXAM: PA and Lateral Views of the Chest DATE: 03/22/2019 1:10 PM INDICATION: Cough, chest pain COMPARISON: No Prior FINDINGS: The heart is not enlarged. Mediastinal and hilar contours are normal. No focal parenchymal airspace opacity. No pleural effusion or pneumothorax. IMPRESSION: 1. No radiographic evidence for acute cardiopulmonary process. Electronically signed by: Guillermo Newton MD (03/22/2019 1:53 PM) [facility]
--- NOTE | 2019-03-22 14:38 | PHYS DOC ---
Past Medical History Past Medical History: Anxiety, Depression, Hypothyroid, Migraines, Renal Disease, Other Additional Past Medical Histor: RA, PTSD, GRAVES Past Surgical History: Tonsillectomy, Tubal ligation, Other Additional Past Surgical Histo: THYROID Alcohol Use: Occasionally Drug Use: None Adult General Chief Complaint Chief Complaint: COUGH HPI HPI Patient is a 28 year old female who presents complaining of a cough that began one and a half weeks ago, patient is also complaining of intermittent episodes of nasal congestion with drainage is sore throat. Patient stated was seen by the PCP last week and was told she has viral illness and supportive measures were recommended. She states she still has symptoms. Review of Systems Review of Systems Constitutional: Reports fevers Eyes: Denies change in visual acuity, redness, or eye pain [] HENT: Reports nasal congestion and sore throat [] Respiratory: Reports cough denies shortness of breath [] Cardiovascular: No additional information not addressed in HPI [] GI: Denies abdominal pain, nausea, vomiting, bloody stools or diarrhea [] : Denies dysuria or hematuria [] Musculoskeletal: Denies back pain or joint pain [] Integument: Denies rash or skin lesions [] Neurologic: Denies headache, focal weakness or sensory changes [] All other systems were reviewed and found to be within normal limits, except as documented in this note. Allergies Allergies Allergies Coded Allergies Type Severity Reaction Last Updated Verified tramadol Allergy Intermediate 01/26/17 Yes Physical Exam Physical Exam Constitutional: Well developed, well nourished, no acute distress, non-toxic appearance. [] HENT: Normocephalic, atraumatic, bilateral external ears normal, oropharynx moist, no oral exudates, nose normal. [] Eyes: PERRLA, EOMI, conjunctiva normal, no discharge. [] Neck: Normal range of motion, no tenderness, supple, no stridor. [] Cardiovascular:Heart rate regular rhythm, no murmur [] Lungs & Thorax: Bilateral breath sounds clear to auscultation [] Abdomen: Bowel sounds normal, soft, no tenderness, no masses, no pulsatile ma sses. [] Skin: Warm, dry, no erythema, no rash. [] Back: No tenderness, no CVA tenderness. [] Extremities: No tenderness, no cyanosis, no clubbing, ROM intact, no edema. [] Neurologic: Alert and oriented X 3, normal motor function, normal sensory function, no focal deficits noted. [] Psychologic: Affect normal, judgement normal, mood normal. [] Current Patient Data Vital Signs Vital Signs Date Time Temp Pulse Resp B/P (MAP) Pulse Ox O2 Delivery O2 Flow Rate FiO2 03/22/19 13:26 98.2 65 16 116/72 (87) 97 Room Air 98.2 EKG EKG [] Radiology/Procedures Radiology/Procedures []PROCEDURE: CHEST PA & LATERAL EXAM: PA and Lateral Views of the Chest DATE: 03/22/2019 1:10 PM INDICATION: Cough, chest pain COMPARISON: No Prior FINDINGS: The heart is not enlarged. Mediastinal and hilar contours are normal. No focal parenchymal airspace opacity. No pleural effusion or pneumothorax. IMPRESSION: 1. No radiographic evidence for acute cardiopulmonary process. Electronically signed by: Guillermo Newton MD (03/22/2019 1:53 PM) [facility] DICTATED and SIGNED BY: GUILLERMO NEWTON MD DATE: 03/22/19 1353 Course & Med Decision Making Course & Med Decision Making Pertinent Labs and Imaging studies reviewed. (See chart for details) This is a 28-year-old female patient who presents to the ED today with a cough, fever, nasal congestion and a sore throat for 1-1/2 weeks, patient has been seen by the PCP, was diagnosed with an upper respiratory infection and instructed to use [id number] remedies. Her chest x-rays negative. She was discharged back to home. Supportive care measures recommended. Dragon Disclaimer Dragon Disclaimer This electronic medical record was generated, in whole or in part, using a voice recognition dictation system. Departure Departure Impression: Primary Impression: Cough Additional Impressions: URI (upper respiratory infection) Acute pharyngitis Fever Disposition: HOME, SELF-CARE Condition: STABLE Referrals: JACKIE COLUNGA JR, MD (PCP) Follow-up in one week Patient Instructions: Upper Respiratory Infection, Adult, [id number] Additional Instructions: You were evaluated in the emergency room with symptoms consistent of a viral illness. Use [id number] cold and cough medications as needed. You can take Tylenol/Motrin for pain or fever. Follow-up with your doctor in 1-2 weeks. Problem Qualifiers Additional Impressions: URI (upper respiratory infection) URI type: unspecified URI Qualified Codes: J06.9 - Acute upper respiratory infection, unspecified Acute pharyngitis Pharyngitis/tonsillitis etiology: unspecified etiology Qualified Codes: J02.9 - Acute pharyngitis, unspecified Fever Fever type: unspecified Qualified Codes: R50.9 - Fever, unspecified [id number] APRN Mar 22, 2019 14:38
== END 2019-03-22 14:58 | disposition home or self-care (01) ==
LOC: ER 12:06
DX: J02.9 Acute pharyngitis, unspecified (principal); R50.9 Fever, unspecified; F41.9 Anxiety disorder, unspecified; F32.9 Major depressive disorder, single episode, unspecified; E03.9 Hypothyroidism, unspecified; G43.909 Migraine, unspecified, not intractable, without status migrainosus; M06.9 Rheumatoid arthritis, unspecified; Z90.89 Acquired absence of other organs; Z98.51 Tubal ligation status; Z88.5 Allergy status to narcotic agent
CPT/HCPCS: 71046; 99284

== ENCOUNTER 2019-12-02 20:48 | Emergency (ER) | payer SELFPAY ==
[~2019-12-02] VITALS: Ht 152.4 cm; Wt 90.9 kg
[2019-12-02 22:11] LABS: BILIRUBIN,URINE NEGATIVE (NEG); CLARITY,URINE CLEAR; COLOR,URINE YELLOW; NITRITE,URINE NEGATIVE (NEG); PH,URINE 6.5 (<5.0-8.0); PROTEIN,URINE NEGATIVE (NEG-TRACE)
[2019-12-02 22:13] LABS: BASO # 0.1 x10^3/uL (0.0-0.2); BASO % 1 % (0-3); EOS # 0.2 x10^3/uL (0.0-0.7); EOS % 2 % (0-3); HEMATOCRIT 40.7 % (36.0-47.0); HEMOGLOBIN 13.5 g/dL (12.0-15.5); LYMPH % 20 % (24-48); MEAN CORPUSCULAR HEMOGLOBIN 27 pg (25-35); MEAN CORPUSCULAR HGB CONC 33 g/dL (31-37); MEAN CORPUSCULAR VOLUME 80 fL (79-100); MONO # 0.6 x10^3/uL (0.0-1.1); MONO % 7 % (0-9); NEUT % 71 % (31-73); PLATELET COUNT 239 x10^3/uL (140-400); RED CELL DISTRIBUTION WIDTH 13.8 % (11.5-14.5); WHITE BLOOD COUNT 9.9 x10^3/uL (4.0-11.0)
[2019-12-02 22:18] LABS: BACTERIA,URINE MANY /HPF (0-FEW); RBC,URINE 0 /HPF (0-2); SQUAMOUS EPITHELIAL CELL,UR MANY /LPF; WBC,URINE OCC /HPF (0-4)
[2019-12-02 22:20] LABS: CALCIUM 8.6 mg/dL (8.5-10.1); CREATININE 0.8 mg/dL (0.6-1.0); GFR 85.4; POTASSIUM 3.9 mmol/L (3.5-5.1)
[2019-12-02 22:25] LABS: ALBUMIN 3.3 g/dL (3.4-5.0); ALBUMIN/GLOBULIN RATIO 0.9 (1.0-1.7); TOTAL BILIRUBIN 0.2 mg/dL (0.2-1.0)
[2019-12-02] MEDS ORDERED: ONDA4TAB12 PO (22:55)
[2019-12-02] MEDS ORDERED: PNV1TABL25 PO (22:55)
--- NOTE | 2019-12-02 22:55 | PHYS DOC ---
Past Medical History Past Medical History: Hypothyroid Additional Past Medical Histor: RA, PTSD, GRAVES Past Surgical History: Tonsillectomy, Tubal ligation Additional Past Surgical Histo: THYROIDECTOMY Smoking Status: Never Smoker Alcohol Use: Occasionally Drug Use: None General Adult EDM: Chief Complaint: NAUSEA/VOMITING/DIARRHA HPI: HPI: Patient is a 29 year old [f__sex] who presents with [] Review of Systems: Review of Systems: Constitutional: Denies fever or chills. [] Eyes: Denies change in visual acuity. [] HENT: Denies nasal congestion or sore throat. [] Respiratory: Denies cough or shortness of breath. [] Cardiovascular: Denies chest pain or edema. [] GI: Denies abdominal pain, nausea, vomiting, bloody stools or diarrhea. [] : Denies dysuria. [] Musculoskeletal: Denies back pain or joint pain. [] Integument: Denies rash. [] Neurologic: Denies headache, focal weakness or sensory changes. [] Endocrine: Denies polyuria or polydipsia. [] Lymphatic: Denies swollen glands. [] Psychiatric: Denies depression or anxiety. [] Heart Score: Risk Factors: Risk Factors: DM, Current or recent (<one month) smoker, HTN, HLP, family history of CAD, obesity. Risk Scores: Score 0 - 3: 2.5% MACE over next 6 weeks - Discharge Home Score 4 - 6: 20.3% MACE over next 6 weeks - Admit for Clinical Observation Score 7 - 10: 72.7% MACE over next 6 weeks - Early Invasive Strategies Allergies: Allergies: Allergies Coded Allergies Type Severity Reaction Last Updated Verified tramadol Allergy Intermediate 01/26/17 Yes Physical Exam: PE: Constitutional: Well developed, well nourished, no acute distress, non-toxic appearance. [] HENT: Normocephalic, atraumatic, bilateral external ears normal, oropharynx moist, no oral exudates, nose normal. [] Eyes: PERRLA, EOMI, conjunctiva normal, no discharge. [] Neck: Normal range of motion, no tenderness, supple, no stridor. [] Cardiovascular:Heart rate regular rhythm, no murmur [] Lungs & Thorax: Bilateral breath sounds clear to auscultation [] Abdomen: Bowel sounds normal, soft, no tenderness, no masses, no pulsatile masses. [] Skin: Warm, dry, no erythema, no rash. [] Back: No tenderness, no CVA tenderness. [] Extremities: No tenderness, no cyanosis, no clubbing, ROM intact, no edema. [] Neurologic: Alert and oriented X 3, normal motor function, normal sensory func tion, no focal deficits noted. [] Psychologic: Affect normal, judgement normal, mood normal. [] Current Patient Data: Labs: Laboratory Tests Test 12/02/19 20:55 12/02/19 21:00 12/02/19 21:15 Urine Collection Type Void Urine Color Yellow Urine Clarity Clear Urine pH 6.5 (<5.0-8.0) Urine Specific [place] 1.025 (1.000-1.030) Urine Protein Negative mg/dL (NEG-TRACE) Urine Glucose (UA) Negative mg/dL (NEG) Urine Ketones (Stick) Negative mg/dL (NEG) Urine Blood Negative (NEG) Urine Nitrite Negative (NEG) Urine Bilirubin Negative (NEG) Urine Urobilinogen Dipstick 1.0 mg/dL (0.2 mg/dL) Urine Leukocyte Esterase Negative (NEG) Urine RBC 0 /HPF (0-2) Urine WBC Occ /HPF (0-4) Urine Squamous Epithelial Cells Many /LPF Urine Bacteria Many /HPF (0-FEW) Urine Mucus Mod /LPF POC Urine HCG, Qualitative Hcg positive (Negative) White Blood Count 9.9 x10^3/uL (4.0-11.0) Red Blood Count 5.10 x10^6/uL (3.50-5.40) Hemoglobin 13.5 g/dL (12.0-15.5) Hematocrit 40.7 % (36.0-47.0) Mean Corpuscular Volume 80 fL (79-100) Mean Corpuscular Hemoglobin 27 pg (25-35) Mean Corpuscular Hemoglobin Concent 33 g/dL (31-37) Red Cell Distribution Width 13.8 % (11.5-14.5) Platelet Count 239 x10^3/uL (140-400) Neutrophils (%) (Auto) 71 % (31-73) Lymphocytes (%) (Auto) 20 % (24-48) L Monocytes (%) (Auto) 7 % (0-9) Eosinophils (%) (Auto) 2 % (0-3) Basophils (%) (Auto) 1 % (0-3) Neutrophils # (Auto) 7.0 x10^3/uL (1.8-7.7) Lymphocytes # (Auto) 2.0 x10^3/uL (1.0-4.8) Monocytes # (Auto) 0.6 x10^3/uL (0.0-1.1) Eosinophils # (Auto) 0.2 x10^3/uL (0.0-0.7) Basophils # (Auto) 0.1 x10^3/uL (0.0-0.2) Maternal Serum HCG Beta Subunit 19 mIU/mL (0-5) H Sodium Level 140 mmol/L (136-145) Potassium Level 3.9 mmol/L (3.5-5.1) Chloride Level 103 mmol/L (98-107) Carbon Dioxide Level 23 mmol/L (21-32) Anion Gap 14 (6-14) Blood Urea Nitrogen 13 mg/dL (7-20) Creatinine 0.8 mg/dL (0.6-1.0) Estimated GFR (Cockcroft-Gault) 85.4 BUN/Creatinine Ratio 16 (6-20) Glucose Level 107 mg/dL (70-99) H Calcium Level 8.6 mg/dL (8.5-10.1) Total Bilirubin 0.2 mg/dL (0.2-1.0) Aspartate Amino Transferase (AST) 30 U/L (15-37) Alanine Aminotransferase (ALT) 34 U/L (14-59) Alkaline Phosphatase 111 U/L (46-116) Total Protein 7.0 g/dL (6.4-8.2) Albumin 3.3 g/dL (3.4-5.0) L Albumin/Globulin Ratio 0.9 (1.0-1.7) L Laboratory Tests 12/02/19 21:15 Laboratory Tests 12/02/19 21:15 Vital Signs: Vital Signs Date Time Temp Pulse Resp B/P (MAP) Pulse Ox O2 Delivery O2 Flow Rate FiO2 12/02/19 21:06 98.3 107 14 112/68 (83) 98 Room Air 98.3 EKG: EKG: [] Radiology/Procedures: Radiology/Procedures: [] Course & Med Decision Making: Course & Med Decision Making Pertinent Labs and Imaging studies reviewed. (See chart for details) [] Dragon Disclaimer: Dragon Disclaimer: This electronic medical record was generated, in whole or in part, using a voice recognition dictation system. Departure Departure Impression: Primary Impression: Qualified Codes: Z34.90 - Encounter for supervision of normal , unspecified, unspecified trimester Additional Impression: Nausea Disposition: HOME, SELF-CARE Condition: STABLE Referrals: JACKIE COLUNGA JR, MD (PCP) JAYA RODRIGUEZ Jr, MD Patient Instructions: ABCs of , Nausea and Vomiting, [id number] Scripts Ondansetron (ONDANSETRON ODT) 4 Mg Tab.rapdis 1 TAB PO PRN Q6-8HRS PRN for NAUSEA, #16 TAB Prov: SIMON DURANT DO 12/02/19 Pnv Cmb#95/Ferrous Fumarate/Fa ( TABLET) 1 Each Tablet 1 TAB PO DAILY for 30 Days, #30 TAB 0 Refills Prov: SIMON DURANT DO 12/02/19 SIMON DURANT DO December 02, 2019 22:55
[2019-12-02 23:00] VITALS: BP 110/71
== END 2019-12-02 23:05 | disposition home or self-care (01) ==
LOC: ER 20:48
DX: O21.9 Vomiting of pregnancy, unspecified (principal); N89.8 Other specified noninflammatory disorders of vagina; E03.9 Hypothyroidism, unspecified; Z90.89 Acquired absence of other organs; Z98.51 Tubal ligation status; Z98.890 Other specified postprocedural states
CPT/HCPCS: 36415; 80053; 81001; 81025; 84702; 85025; 86850; 86900; 86901; 87086; 99285

== ENCOUNTER → 2019-12-26 | Outpatient (CLI) | payer OTHER ==
[2019-12-02 23:00] VITALS: BP 110/71
[~2019-12-26] MED LIST changes: +ONDA4TAB12 PO; +PNV1TABL25 PO
[2019-12-26 16:34] LABS: BASO # 0.1 x10^3/uL (0.0-0.2); BASO % 1 % (0-3); EOS # 0.2 x10^3/uL (0.0-0.7); EOS % 2 % (0-3); HEMATOCRIT 41.6 % (36.0-47.0); HEMOGLOBIN 13.8 g/dL (12.0-15.5); LYMPH # 2.3 x10^3/uL (1.0-4.8); LYMPH % 22 % (24-48); MEAN CORPUSCULAR HEMOGLOBIN 27 pg (25-35); MEAN CORPUSCULAR HGB CONC 33 g/dL (31-37); MEAN CORPUSCULAR VOLUME 80 fL (79-100); MONO # 0.6 x10^3/uL (0.0-1.1); MONO % 6 % (0-9); NEUT # 7.2 x10^3/uL (1.8-7.7); NEUT % 69 % (31-73); PLATELET COUNT 238 x10^3/uL (140-400); RED BLOOD COUNT 5.19 x10^6/uL (3.50-5.40); RED CELL DISTRIBUTION WIDTH 14.3 % (11.5-14.5); WHITE BLOOD COUNT 10.4 x10^3/uL (4.0-11.0)
== END | disposition home or self-care (01) ==
LOC: LAB 16:16
PROVIDERS: ATTEND Obstetrics & Gynecology
DX: N91.1 Secondary amenorrhea (principal)
CPT/HCPCS: 36415; 84702; 85025

== ENCOUNTER → 2020-10-03 | Emergency (ER) | payer OTHER ==
[~2020-10-03] VITALS: Ht 152.4 cm; Wt 90.9 kg
[2020-10-03 14:40] VITALS: BP 133/90
--- NOTE | 2020-10-03 15:01 | ED.ADGEN ---
Past Medical History Past Medical History: Hypothyroid Additional Past Medical Histor: RA, PTSD, GRAVES Past Surgical History: Tonsillectomy, Tubal ligation Additional Past Surgical Histo: THYROIDECTOMY Smoking Status: Never Smoker Alcohol Use: Occasionally Drug Use: None General Adult EDM: Chief Complaint: EYE PROBLEMS HPI: HPI: Patient is a 30 year old female who presents to the emergency department with complaints of subconjunctival hemorrhage of the left eye for the last 2 days. Patient reports that about a week ago she had a small amount of bloody discharge from the left ear. She denies any ear pain. Patient states she has had some n thuy congestion, sinus pressure, and a dull frontal headache in addition to the symptoms. She denies any tinnitus or decreased hearing. Patient denies any vision changes, dizziness, nausea, vomiting, photosensitivity, numbness, tingling, or weakness. She denies any trauma to her left eye. Patient currently rates her headache a 4 out of 10 on the pain scale and describes it as pressure behind her eyes that is worse on the left than the right. Review of Systems: Review of Systems: Complete ROS is negative unless otherwise noted in HPI. Allergies: Allergies: Allergies Coded Allergies Type Severity Reaction Last Updated Verified tramadol Allergy Intermediate 01/26/17 Yes Physical Exam: PE: See Above Constitutional: Well developed, well nourished, no acute distress, non-toxic appearance. [] HENT: Normocephalic, atraumatic, bilateral external ears normal, bilateral TMs normal; nasal turbinates edematous and erythematous bilaterally with clear drainage, cobblestone appearance of posterior pharynx Eyes: PERRLA, EOMI, right eye conjunctiva normal, no discharge; left eye subconjunctival hemorrhage noted at the 9 o'clock position, no visible foreign body. [] Neck: Normal range of motion, no stridor. [] Cardiovascular:Heart rate regular rhythm Lungs & Thorax: Respirations even and unlabored, no retractions, no respiratory distress Skin: Warm, dry, no erythema, no rash. [] Extremities: No cyanosis, ROM intact, no edema. [] Neurologic: Alert and oriented X 3, no focal deficits noted. [] Psychologic: Affect normal, judgement normal, mood normal. [] Current Patient Data: Vital Signs: Vital Signs Date Time Temp Pulse Resp B/P (MAP) Pulse Ox O2 Delivery O2 Flow Rate FiO2 10/03/20 14:40 98.2 100 16 133/90 (104) 100 Room Air 98.2 EKG: EKG: [] Heart Score: C/O Chest Pain: No Risk Factors: Risk Factors: DM, Current or recent (<one month) smoker, HTN, HLP, family history of CAD, obesity. Risk Scores: Score 0 - 3: 2.5% MACE over next 6 weeks - Discharge Home Score 4 - 6: 20.3% MACE over next 6 weeks - Admit for Clinical Observation Score 7 - 10: 72.7% MACE over next 6 weeks - Early Invasive Strategies Radiology/Procedures: Radiology/Procedures: [] Course & Med Decision Making: Course & Med Decision Making Pertinent Labs and Imaging studies reviewed. (See chart for details) [] Dragon Disclaimer: Dragon Disclaimer: This electronic medical record was generated, in whole or in part, using a voice recognition dictation system. Departure Departure Impression: Primary Impression: Allergic rhinitis Additional Impression: Non-traumatic subconjunctival hemorrhage of left eye Disposition: 01 DC HOME SELF CARE/HOMELESS Condition: STABLE Referrals: JACKIE COLUNGA JR, MD (PCP) Patient Instructions: Allergic Rhinitis, Subconjunctival Hemorrhage-Brief Additional Instructions: Recommend that you take 10 mg of generic Zyrtec (cetirizine) or Claritin at bedtime and use over the counter Flonase (fluticasone) nasal spray 2 sprays each nostril once daily in the morning. You may take Tylenol or ibuprofen as needed for pain/fever. Increase clear fluids. Avoid triggers such as smoke, fragrance, dust, and pollen. Follow-up with your primary care doctor next week, return to the ER if symptoms worsen or if fever develops.. Problem Qualifiers Primary Impression: Allergic rhinitis Allergic rhinitis trigger: unspecified Allergic rhinitis seasonality: unspecified Qualified Codes: J30.9 - Allergic rhinitis, unspecified TERESITA HICKMAN [employer] Oct 03, 2020 15:01
== END ==
LOC: ER 14:20
DX: J30.9 Allergic rhinitis, unspecified (principal); H11.32 Conjunctival hemorrhage, left eye; R51.9 Headache, unspecified; E03.9 Hypothyroidism, unspecified; Z90.89 Acquired absence of other organs; Z98.51 Tubal ligation status; Z98.890 Other specified postprocedural states; Z88.8 Allergy status to other drugs, medicaments and biological substances
CPT/HCPCS: 99282

== ENCOUNTER 2021-01-30 08:33 | Emergency (ER) | payer OTHER ==
[~2021-01-30] VITALS: Ht 154.9 cm; Wt 90.4 kg
[2021-01-30 08:40] VITALS: BP 134/86
--- NOTE | 2021-01-30 09:29 | PHYS DOC ---
Past Medical History Past Medical History: Anxiety, Depression, Hypothyroid, Migraines Additional Past Medical Histor: RA, PTSD, GRAVES Past Surgical History: Tonsillectomy, Tubal ligation Additional Past Surgical Histo: THYROIDECTOMY Smoking Status: Never Smoker Alcohol Use: Occasionally Drug Use: None General Adult EDM: Chief Complaint: FINGER INJURY HPI: HPI: Patient is a 30 year old female who presents with finger pain in right index finger proximal interphalangeal joint that started late last night. Pt doesn't remember any trauma to finger. Pain is throbbing and stabbing when finger is moved. Pain 6/10. Nothing improves. Movement worsens. Pt reports headache over last couple days. Pain doesn't radiate. Patient is unsure regarding . Patient does report history of tubal ligation but reports has been since getting the tubal ligation. Patient reports last menstrual period was greater than 1 month ago. Review of Systems: Review of Systems: Constitutional: Denies fever or chills Musculoskeletal: Reports pain to right index finger with redness and swelling Integument: Denies rash or skin lesions Neurologic: Denies headache, focal weakness or sensory changes Complete systems were reviewed and found to be within normal limits, except as documented in this note. Heart Score: C/O Chest Pain: N/A Allergies: Allergies: Allergies Coded Allergies Type Severity Reaction Last Updated Verified tramadol Allergy Severe SWELLING, RASH 01/30/21 Yes Physical Exam: PE: Constitutional: Well developed, well nourished, no acute distress, non-toxic appearance HENT: Normocephalic, atraumatic Eyes: Conjunctiva normal, no discharge Neck: Normal range of motion, mild posterior paracervical muscle tenderness, supple, thyroidectomy scar Lungs & Thorax: No respiratory distress, equal chest rise and fall, clear to auscultation b/l Cardiovascular: Regular rate and rhythm Abdomen: Soft, no tenderness Skin: Warm, dry, no erythema, no rash Extremities: no edema, 2+ radial pulse b/l, right index finger mildly erythmatic, mildly warm and swollen, tender to palpation, pain limited flexion Neurologic: Alert and oriented X 3, normal motor function, normal sensory function, no focal deficits noted Psychologic: Affect normal, judgment normal Current Patient Data: Vital Signs: Vital Signs Date Time Temp Pulse Resp B/P (MAP) Pulse Ox O2 Delivery O2 Flow Rate FiO2 01/30/21 08:40 97.9 93 20 134/86 (104) 97 Room Air 97.9 EKG: EKG: [] Radiology/Procedures: Radiology/Procedures: PROCEDURE: HAND RIGHT 3V Exam Date: 01/30/2021 8:57 AM XR HAND_RIGHT 3 VIEWS Indication: Reason: pain/swelling to right index finger PIP / Spl. Instructions: / History: . COMPARISON: September 02, 2018 FINDINGS/ IMPRESSION: There is a 1 mm calcification along the ulnar aspect of the second PIP joint, seen only on the oblique view. This is of indeterminate age but could represent a small avulsed fragment. Correlate clinically for point tenderness at this site. Mild soft tissue swelling of the second finger is noted. Alignment and joint spaces are otherwise maintained. Other visualized osseous structures are intact. Electronically signed by: Jarvis Galo MD (01/30/2021 10:22 AM) [id number] Course & Med Decision Making: Course & Med Decision Making Pt presents with pain and swelling of right index finger PIP. Pt denies trauma, bites, or scratches to hand or finger. Pt denies history of gout. XR of right hand shows no acute fracture, however cannot fully exclude an avulsion fracture. Suspect inflammatory cause of pain and swelling. Plan to administer toradol for pain. Prescription for prednisone, naproxen, and finger brace. Prescription for Augmentin if fever develops or red streaks develop. Advised rest, ice, and splint. Patient stable for discharge with outpatient follow-up with PCP/Orthopedics. Orthopedic referral provided. Discussed findings and plan with patient, who acknowledges understanding and agreement. Heather Disclaimer: Heather Disclaimer: This electronic medical record was generated, in whole or in part, using a voice recognition dictation system. Splinting Splinting : Location: Right index finger Pre-Made Type: metal (aluminium finger splint) Pre-Proc Neuro Vasc Exam: normal Post-Proc Neuro Vasc Exam: normal, unchanged from pre-exam Departure Departure Impression: Primary Impression: Pain in finger joint on movement Disposition: 01 HOME / SELF CARE / HOMELESS Condition: STABLE Referrals: JACKIE COLUNGA JR, MD (PCP) OLIVA GOLDBERG DO Patient Instructions: Finger Sprain, [id number], Gout, Chon-vz-Cidc Additional Instructions: Hold antibiotics for 48 hours. If symptoms worsen or for fever > 100.3 F after 48 hours then start antibiotics as prescribed. Take [id number] ibuprofen or use prescribed naproxen. May also use [id number] Tylenol as needed for pain. Ice area of discomfort 20 minutes on then leave off next 20 minutes. Repeat several times daily for the next few days. Scripts Amoxicillin/Potassium Clav (AUGMENTIN 875-125 TABLET) 1 Each Tablet 1 TAB PO BID, #14 TAB Prov: SIMON DURANT DO 01/30/21 Prednisone (PREDNISONE) 20 Mg Tablet 2 TAB PO DAILY for 4 Days, #8 TAB Start this prescription tomorrow, 01/31/21 Prov: SIMON DURANT DO 01/30/21 Naproxen (NAPROXEN) 375 Mg Tablet 375 MG PO TID PRN PRN for PAIN, #30 TAB Prov: SIMON DURANT DO 01/30/21 SIMON DURANT DO Jan 30, 2021 09:29
[2021-01-30] MEDS ORDERED: KETOROLAC 30 MG/ML VIAL. IM ONE (09:30)
[2021-01-30] MEDS ORDERED: DEXAMETHASONE 4 MG TABLET PO ONE (09:30)
[2021-01-30] MEDS ORDERED: PRED20TA PO (09:35)
[2021-01-30] MEDS ORDERED: NAPR-695 PO (09:35)
[2021-01-30] MEDS ORDERED: AMOX1TAB61 PO (09:48)
--- NOTE | 2021-01-30 10:24 | RAD ---
Exam Date: 01/30/2021 8:57 AM XR HAND_RIGHT 3 VIEWS Indication: Reason: pain/swelling to right index finger PIP / Spl. Instructions: / History: . COMPARISON: September 02, 2018 FINDINGS/ IMPRESSION: There is a 1 mm calcification along the ulnar aspect of the second PIP joint, seen only on the obliqu e view. This is of indeterminate age but could represent a small avulsed fragment. Correlate clinic ally for point tenderness at this site. Mild soft tissue swelling of the second finger is noted. Al ignment and joint spaces are otherwise maintained. Other visualized osseous structures are intact. Electronically signed by: Jarvis Galo MD (01/30/2021 10:22 AM) [id number]
== END 2021-01-30 09:53 | disposition home or self-care (01) ==
LOC: ER 08:33
DX: M79.644 Pain in right finger(s) (principal); E03.9 Hypothyroidism, unspecified; G43.909 Migraine, unspecified, not intractable, without status migrainosus; F43.10 Post-traumatic stress disorder, unspecified; Z88.6 Allergy status to analgesic agent
CPT/HCPCS: 29130; 73130; 81025; 96372; 99283; J1885; 99284

== ENCOUNTER 2021-07-16 12:59 | Emergency (ER) | payer OTHER ==
[~2021-07-16] VITALS: Ht 165.1 cm; Wt 86.0 kg
[~2021-07-16 12:59] MED LIST changes: +AMOX1TAB61 PO; +CYCL10TA19 PO; -CYCL10TA2 PO; +NAPR-695 PO
[2021-07-16 13:41] VITALS: BP 110/78
--- NOTE | 2021-07-16 14:23 | ED.ADGEN ---
Past Medical History Past Medical History: Anxiety, Depression, Hypothyroid, Migraines Additional Past Medical Histor: RA,PTSD,GRAVES Past Surgical History: Tonsillectomy, Tubal ligation Additional Past Surgical Histo: THYROIDECTOMY Smoking Status: Never Smoker Alcohol Use: None Drug Use: None General Adult EDM: Chief Complaint: FLU SYMPTOM HPI: HPI: Patient is a 31 year old female coming to the emergency department for cold symptoms. Patient states she was exposed to COVID-19 6 days ago, has had symptoms for the past 3 days. Patient is complaining of a sore throat, nonproductive cough, body aches, congestion. Has had both of her Covid vaccines plus booster, has not had her influenza vaccine yet Review of Systems: Review of Systems: All other systems within normal limits except for as noted in the HPI Allergies: Allergies: Allergies Coded Allergies Type Severity Reaction Last Updated Verified tramadol Allergy Severe SWELLING, RASH 01/30/21 Yes Physical Exam: PE: Constitutional: Well developed, well nourished, no acute distress, non-toxic appearance. [] HENT: Normocephalic, atraumatic, bilateral external ears normal, nose normal. [] Eyes: PERRLA, conjunctiva normal, no discharge. [] Neck: No rigidity, supple, no stridor. [] Cardiovascular: Regular rate and rhythm, brisk cap refill [] Lungs & Thorax: Non labored symmetric respirations, no tachypnea or respiratory distress [] Abdomen: Soft, nondistended. Skin: Warm, dry, no erythema, no rash. [] Back: Unremarkable Extremities: No deformities, range of motion grossly intact, no lower extremity edema [] Neurologic: Alert and oriented X 3, no focal deficits noted. [] Psychologic: Affect normal, judgement normal, mood normal. [] Current Patient Data: Labs: Laboratory Tests Test 07/16/21 14:00 Influenza Type A Antigen Negative (NEGATIVE) Influenza Type B Antigen Negative (NEGATIVE) SARS-CoV-2 Antigen (Rapid) Positive (NEGATIVE) *A Vital Signs: Vital Signs Date Time Temp Pulse Resp B/P (MAP) Pulse Ox O2 Delivery O2 Flow Rate FiO2 07/16/21 13:41 98.3 77 17 110/78 (89) 96 Room Air 98.3 EKG: EKG: [] Heart Score: C/O Chest Pain: No Risk Factors: Risk Factors: DM, Current or recent (<one month) smoker, HTN, HLP, family history of CAD, obesity. Risk Scores: Score 0 - 3: 2.5% MACE over next 6 weeks - Discharge Home Score 4 - 6: 20.3% MACE over next 6 weeks - Admit for Clinical Observation Score 7 - 10: 72.7% MACE over next 6 weeks - Early Invasive Strategies Radiology/Procedures: Radiology/Procedures: [] Course & Med Decision Making: Course & Med Decision Making Pertinent Labs and Imaging studies reviewed. (See chart for details) [] Dragon Disclaimer: Dragon Disclaimer: This electronic medical record was generated, in whole or in part, using a voice recognition dictation system. Departure Departure Impression: Primary Impression: COVID Disposition: 01 HOME / SELF CARE / HOMELESS Condition: STABLE Referrals: JACKIE COLUNGA JR, MD (PCP) Patient Instructions: Viral Syndrome BOGDAN MONTAÑO MD Jul 16, 2021 14:23
[2021-07-16 14:49] LABS: INFLUENZA A PATIENT NEGATIVE (NEGATIVE); INFLUENZA B PATIENT NEGATIVE (NEGATIVE)
== END 2021-07-16 15:12 | disposition home or self-care (01) ==
LOC: ER 12:59
DX: U07.1 COVID-19 (principal); G43.909 Migraine, unspecified, not intractable, without status migrainosus; E03.9 Hypothyroidism, unspecified; F43.10 Post-traumatic stress disorder, unspecified; Z88.6 Allergy status to analgesic agent
CPT/HCPCS: 87426; 87804; 99283

== ENCOUNTER → 2021-12-07 | Emergency (ER) | payer OTHER ==
[~2021-12-07] VITALS: Ht 152.4 cm; Wt 87.2 kg
[~2021-12-07] MED LIST changes: +KETOROLAC 30 MG/ML VIAL. IM ONE
[2021-12-07 12:45] VITALS: BP 125/81
--- NOTE | 2021-12-07 14:22 | RAD ---
EXAM: XR EXAM OF ANKLE_RIGHT 3VIEWS, XR KNEE 4 VIEWS WITH PATELLA_RT, XR FOOT_RIGHT 3 VIEWS 2 1:55 PM CLINICAL INDICATION: Pain after walking backwards up steps and slipping and falling. COMPARISON: None TECHNIQUE: AP, oblique, lateral, and sunrise views of the right knee. AP, oblique, and lateral views of the right ankle. AP, oblique, and lateral views of the right foot. FINDINGS: Right knee: There is no acute fracture. There is 5 mm lateral subluxation of the patella relative to the trochlea, age indeterminate. Joint spaces are maintained. There is a trace joint effusion. No foc al soft tissue abnormality. Right ankle: No acute fracture. Alignment is normal. Ankle mortise is symmetric and talar dome is int act. There is a small os trigonum. No focal soft tissue abnormality. Right foot: No acute fracture. Alignment is normal. Joint spaces are maintained. No focal soft tissue abnormality. IMPRESSION: 1. 5 mm lateral subluxation of the patella relative to the trochlea, age indeterminate but may be chr onic. Correlate with site of pain. No other acute abnormality in the right knee. 2. No acute osseous abnormality of the right ankle or foot. Electronically signed by: Cherry Maharaj MD (12/07/2021 2:19 PM) [facility]
--- NOTE | 2021-12-07 14:53 | PHYS DOC ---
Past Medical History Past Medical History: Anxiety, Depression, Hypothyroid (acquired), Migraines Additional Past Medical Histor: RA,PTSD,GRAVES Past Surgical History: Tonsillectomy, Tubal ligation Additional Past Surgical Histo: THYROIDECTOMY Smoking Status: Never Smoker Alcohol Use: None Drug Use: None General Adult EDM: Chief Complaint: ANKLE PROBLEM HPI: HPI: Patient is a 31 year old female who presents with right lower extremity pain. Patient states she was standing on an outdoor stairwell being passed volley b alls when she stepped backward up the step and "rolled her ankle." She reports pain is the worst at the medial aspect of her right foot, but also reports pain extending proximally to the base of the knee. Patient denies other injuries including head, neck and other extremities. Review of Systems: Review of Systems: Constitutional: Denies fever, chills or generalized weakness Eyes: Denies change in visual acuity, visual field deficits or discharge HENT: Denies ear pain, nasal congestion or sore throat Respiratory: Denies cough or shortness of breath Cardiovascular: Denies chest pain, palpitations or edema GI: Denies abdominal pain, nausea, vomiting, bloody stools or diarrhea : Denies dysuria or hematuria Musculoskeletal: See HPI Integument: Denies rash or other skin lesion Neurologic: Denies headache, focal weakness or sensory changes Heart Score: C/O Chest Pain: No Current Medications: Current Medications Medications (Trade) Dose Ordered Sig/[facility] Start Time Stop Time Status Last Admin Dose Admin Ketorolac Tromethamine (Toradol 30mg Vial) 30 mg 1X ONCE 12/07/21 14:30 12/07/21 14:31 DC 12/07/21 14:28 30 MG Allergies: Allergies: Allergies Coded Allergies Type Severity Reaction Last Updated Verified tramadol Allergy Severe SWELLING, RASH 01/30/21 Yes Physical Exam: PE: Constitutional: Well developed, well nourished, no acute distress, non-toxic appearance. HENT: Normocephalic, atraumatic, bilateral external ears normal, nose normal. Eyes: EOMI, conjunctiva normal, no discharge. Neck: Normal range of motion, no tenderness, no stridor. Skin: Warm, dry, no erythema, no rash. Back: No stepoff, no tenderness. Extremities: Right foot with tenderness at the base of the first metatarsal, no bony tenderness over malleoli on the right side, tender to palpation in the soft tissue spaces lateral distally to the patella. Extremities otherwise no tenderness, no cyanosis, no clubbing, active and passive ROM intact, no edema, peripheral pulses 2+ and symmetrical, great toe dorsiflexion intact bilaterally. Neurologic: Alert and oriented x4, normal motor function, normal sensory function, no focal deficits noted. Current Patient Data: Vital Signs: Vital Signs Date Time Temp Pulse Resp B/P (MAP) Pulse Ox O2 Delivery O2 Flow Rate FiO2 12/07/21 12:45 98.7 101 18 125/81 (96) 97 Room Air 98.7 Radiology/Procedures: Radiology/Procedures: PROCEDURE: XR EXAM OF ANKLE_RIGHT 3VIEWS, XR KNEE 4 VIEWS WITH PATELLA_RT, XR FOOT_RIGHT 3 VIEWS 12/07/2021 1:55 PM CLINICAL INDICATION: Pain after walking backwards up steps and slipping and falling. COMPARISON: None TECHNIQUE: AP, oblique, lateral, and sunrise views of the right knee. AP, oblique, and lateral views of the right ankle. AP, oblique, and lateral views of the right foot. FINDINGS: Right knee: There is no acute fracture. There is 5 mm lateral subluxation of the patella relative to the trochlea, age indeterminate. Joint spaces are maintained. There is a trace joint effusion. No focal soft tissue abnormality. Right ankle: No acute fracture. Alignment is normal. Ankle mortise is symmetric and talar dome is intact. There is a small os trigonum. No focal soft tissue abnormality. Right foot: No acute fracture. Alignment is normal. Joint spaces are maintained. No focal soft tissue abnormality. IMPRESSION: 1. 5 mm lateral subluxation of the patella relative to the trochlea, age indeterminate but may be chronic. Correlate with site of pain. No other acute abnormality in the right knee. 2. No acute osseous abnormality of the right ankle or foot. Electronically signed by: Cherry Maharaj MD (12/07/2021 2:19 PM) [facility] Course & Med Decision Making: Course & Med Decision Making Pertinent Labs and Imaging studies reviewed. (See chart for details) Plain films reveal possible subluxation of the right patella, where the patient does have tenderness. YELENA Gutierrez, with orthopedic service was consulted. She reviewed plain films, and determined that they were normal exams. Patient was placed in an Cade wrap around the knee and a stirrup splint in the ankle and advised to use rice joint injury care instructions. Patient was provided with orthopedic follow-up, should she continue to have pain or issues with ambulation. Return precautions are provided. Patient understands and is agreeable to discharge plan. Dragon Disclaimer: Dragon Disclaimer: This chart was dictated in whole or in part using Voice Recognition software in a busy, high-work load, and often noisy Emergency Department environment. It may contain unintended and wholly unrecognized errors or omissions. Departure Departure Impression: Primary Impression: Sprain of unspecified ligament of right ankle, initial encounter Additional Impression: Sprain of unspecified site of right knee, initial encounter Disposition: HOME / SELF CARE / HOMELESS Condition: STABLE Referrals: JACKIE COLUNGA JR, MD (PCP) LUIS ENRIQUE MAYEN II, MD Patient Instructions: Ankle Sprain, [id number], Knee Sprain, [id number], RICE - Routine Care for Injuries, [id number] Additional Instructions: EMERGENCY DEPARTMENT GENERAL DISCHARGE INSTRUCTIONS Thank you for coming to [facility] Emergency Department (ED) today and trusting us with you care. We trust that you had a positive experience in our Emergency Department. If you wish to speak to the department management, you may call the director at . YOUR FOLLOW UP INSTRUCTIONS ARE FOLLOWS: 1. Follow up with your primary care doctor. If you do not have a primary doctor, please ask for a resource list of physicians or clinics that may be able to assist you with follow up care. 2. The emergency provider has interpreted your imaging studies, if any were ordered. The radiology imaging assistant also reviewed them. If there is a change in the findings, you will be notified in 48 hours when at all possible. 3. If a lab test or culture has been done, your results will be reviewed and you will be notified if you need a change in treatment. 4. Follow instructions verbalized to you and refer to the printouts if needed. ADDITIONAL INSTRUCTIONS AND INFORMATION: 1. Your care today has been supervised by a physician who is specially trained in emergency care. Many problems require more than one evaluation for a complete diagnosis and treatment. We recommend that you schedule your follow up appointment as recommended to ensure complete treatment of you illness or injury. If you are unable to obtain follow up care and continue to have a problem, or if your condition worsens, we recommend that you return to the ED. 2. We are not able to safely determine your condition over the phone nor are we able to give sound medical advice over the phone. For these safety reasons, if you call for medical advice we will ask you to come to the ED for further evaluation. 3. If you have any questions regarding these discharge instructions please call the ED at . SAFETY INFORMATION: In the interest of safety, wellness, and injury prevention; we encourage you to wear your seat belt, if you smoke; quite smoking, and we encourage family to use a protective helmet for bicycling and other sporting events that present an increased risk for head injury. IF YOUR SYMPTOMS WORSEN OR NEW SYMPTOMS DEVELOP, OR YOU HAVE CONCERNS ABOUT YOUR CONDITION; OR IF YOUR CONDITION WORSENS WHILE YOU ARE WAITING FOR YOUR FOLLOW UP APPOINTMENT; EITHER CONTACT YOUR PRIMARY CARE DOCTOR, THE PHYSICIAN WHOSE NAME AND NUMBER YOU WERE GIVEN, OR RETURN TO THE ED IMMEDIATELY. ELISA MEADE December 07, 2021 14:53
== END | disposition home or self-care (01) ==
LOC: ER 12:31
DX: S83.91XA Sprain of unspecified site of right knee, initial encounter (principal); G43.909 Migraine, unspecified, not intractable, without status migrainosus; S93.401A Sprain of unspecified ligament of right ankle, initial encounter; E03.9 Hypothyroidism, unspecified; Z88.6 Allergy status to analgesic agent; X50.9XXA Other and unspecified overexertion or strenuous movements or postures, initial encounter; Y93.89 Activity, other specified; Y92.89 Other specified places as the place of occurrence of the external cause; Y99.8 Other external cause status
CPT/HCPCS: 73564; 73610; 73630; 96372; 99284; J1885